=== PATIENT | female | born 1950 | race Caucasian/White ===

== ENCOUNTER 2017-10-06 19:19 | Inpatient (IN) | payer MEDICARE, MEDICAID ==
[~2017-10-06] VITALS: Ht 167.6 cm; Wt 57.2 kg
[2017-10-06] MEDS ORDERED: MAG HYDROX/AL HYDROX/SIMETH 30 ML UDC PO PRN ×2 (20:30→23:30)
[2017-10-06] MEDS ORDERED: LORAZEPAM 0.5 MG TABLET PO PRN (20:30)
[2017-10-06] MEDS ORDERED: ZOLPIDEM TARTRATE 5 MG TABLET PO PRN (20:30)
[2017-10-06] MEDS ORDERED: MAGNESIUM HYDROXIDE 30 ML UDC PO PRN ×2 (20:30→23:30)
[2017-10-06] MEDS ORDERED: HYDR12.5 PO (21:08)
[2017-10-06] MEDS ORDERED: LEVO137T24 PO (21:08)
[2017-10-06] MEDS ORDERED: AMLO5TAB2 PO (21:08)
[2017-10-06] MEDS ORDERED: ATOR40TA PO (21:08)
[2017-10-06] MEDS ORDERED: ASPI-605 PO (21:08)
[2017-10-06] MEDS ORDERED: METO25TA6 PO (21:08)
[2017-10-06] MEDS ORDERED: MULT1TAB73 PO (21:09)
[2017-10-06] MEDS ORDERED: ACETAMINOPHEN 325 MG TABLET PO PRN (23:30)
--- NOTE | 2017-10-07 03:16 | NUR ---
ADMITTED THIS 67 YEARS FEMALE FROM [facility], PATIENT GOT ADMITTED FOR GRAVELY DISABLE PATIENT ADMITTED VOLUNTARY DUE TO HOLD IS IS AWARE, LINDA ANY PAIN OR DISCOMFORT AT THIS TIME, NO RESPIRATORY DISTRESS NOTED, GET AGITATED EASILY SKIN ASSESSMENT IS DONE SKIN IS CLEAR, NO CONTACT NUMBER TRY TO CONTACT THE NUMBER IN FACE SHEET, BUT ITS A PRAYER LINE NUMBER CHARGE NURSE AWARE. PATIENT IS ASLEEP RIGHT NOW DENIES ANY PAIN OR DISCOMFORT AT THIS TIME, WILL CONTINUES TO MONITOR THE PATIENT EVERY 15 MIS FOR SAFETY AND FALL.
[2017-10-07 07:54] LABS: BASOPHILS % (AUTO) 0.4 % (0.0-2.0); EOSINOPHILS % (AUTO) 1.3 % (0.0-6.0); HEMATOCRIT 38 % (39-51); HEMOGLOBIN 12.5 g/dL (13.5-17.5); LYMPHOCYTES # (AUTO) 1.3 /CMM (0.8-4.8); LYMPHOCYTES % (AUTO) 15.5 % (20.0-44.0); MEAN CORPUSCULAR HEMOGLOBIN 34 PG (26.0-33.0); MEAN CORPUSCULAR HGB CONC 33 g/dl (31.0-36.0); MEAN CORPUSCULAR VOLUME 102 fL (80-96); MONOCYTES # (AUTO) 0.6 /CMM (0.1-1.30); MONOCYTES % (AUTO) 7.1 % (2.0-12.0); NEUTROPHILS # (AUTO) 6.6 /CMM (1.8-8.9); NEUTROPHILS % (AUTO) 75.7 % (43.0-81.0); PLATELET COUNT (AUTO) 216 /CMM (150-450); RDW COEFFICIENT OF VARIATION 14.1 (11.5-15.0); RED BLOOD CELL COUNT(AUTO) 3.73 MIL/uL (4.5-6.0); WHITE BLOOD COUNT (AUTO) 8.7 K/uL (4.3-11.0)
[2017-10-07 08:00] VITALS: BP 152/75
[2017-10-07 08:22] LABS: ALBUMIN 2.4 g/dL (3.4-5.0); BILIRUBIN,TOTAL 0.3 mg/dL (0.2-1.0); CALCIUM, SERUM 8.6 mg/dL (8.5-10.1); CREATININE 0.8 mg/dL (0.6-1.3); POTASSIUM 4.3 mmol/L (3.5-5.1); TOTAL PROTEIN, SERUM 5.8 g/dL (6.4-8.2)
[2017-10-07 08:26] LABS: CHOLESTEROL 140 mg/dL (<200); HDL CHOLESTEROL 42 mg/dL (40-60); LDL 79 mg/dL (0-99); TRIGLYCERIDES 100 mg/dL (30-150)
[2017-10-07] MEDS: ACETAMINOPHEN 325 MG TABLET PO PRN ×2 (11:05→19:57)
--- NOTE | 2017-10-07 11:12 | NUR ---
GPS/RN-NOTES PATIENT C/O LOWER BACK PAIN AND REQUESTING FOR TYLENOL,TYLENOL 650MG P.O GIVEN PRN ORDER.WILL CONT. MONITORING FOR SAFETY AND BEHAVIOR.
[2017-10-07] MEDS ORDERED: hydrALAZINE HCL 25 MG TABLET PO PRN (12:30)
[2017-10-07 13:01] LABS: BASOPHILS % (AUTO) 0.5 % (0.0-2.0); HEMATOCRIT 42 % (39-51); HEMOGLOBIN 13.7 g/dL (13.5-17.5); LYMPHOCYTES # (AUTO) 1.8 /CMM (0.8-4.8); LYMPHOCYTES % (AUTO) 20.9 % (20.0-44.0); MEAN CORPUSCULAR HEMOGLOBIN 33 PG (26.0-33.0); MEAN CORPUSCULAR HGB CONC 33 g/dl (31.0-36.0); MEAN CORPUSCULAR VOLUME 101 fL (80-96); MONOCYTES # (AUTO) 0.6 /CMM (0.1-1.30); MONOCYTES % (AUTO) 6.9 % (2.0-12.0); NEUTROPHILS % (AUTO) 70.7 % (43.0-81.0); PLATELET COUNT (AUTO) 254 /CMM (150-450); RED BLOOD CELL COUNT(AUTO) 4.13 MIL/uL (4.5-6.0); WHITE BLOOD COUNT (AUTO) 8.4 K/uL (4.3-11.0)
[2017-10-07 13:11] LABS: CALCIUM, SERUM 9.3 mg/dL (8.5-10.1); CREATININE 0.8 mg/dL (0.6-1.3); MAGNESIUM 1.5 mg/dL (1.8-2.4); POTASSIUM 4.2 mmol/L (3.5-5.1)
[2017-10-07 13:18] LABS: CHOLESTEROL 167 mg/dL (<200); HDL CHOLESTEROL 49 mg/dL (40-60); LDL 94 mg/dL (0-99); TRIGLYCERIDES 106 mg/dL (30-150)
[2017-10-07 13:25] LABS: THYROID STIMULATING HORMONE 14.585 uIU/mL (0.358-3.74)
[2017-10-07 16:00] VITALS: BP 115/60
--- NOTE | 2017-10-07 16:46 | NUR ---
GPS/RN-NOTES URINE SPECIMEN WAS COLLECTED AND SEND TO LAB.
[2017-10-07] MEDS: METOPROLOL TARTRATE 25 MG TABLET PO SCH (17:07)
[2017-10-07 17:08] LABS: APPEARANCE,URINE SL CLOUDY (CLEAR); BILIRUBIN,URINE NEGATIVE (NEGATIVE); BLOOD, URINE NEGATIVE Ery/uL (NEGATIVE); COLOR,URINE YELLOW (YELLOW); KETONES,URINE NEGATIVE (NEGATIVE); LEUKOCYTE ESTERASE ,URINE NEGATIVE (NEGATIVE); NITRITE, URINE NEGATIVE (NEGATIVE); PH,URINE 6.5 (5.0-8.0); PROTEIN,URINE NEGATIVE (NEGATIVE); UGLUCOSE NEGATIVE (NEGATIVE)
[2017-10-07 17:23] LABS: BACTERIA,URINE Few /HPF (None Seen); RBC,URINE 0-2 /HPF (0-2); SQUAMOUS EPITHELIAL CELL,UR Few /HPF (None Seen); WBC,URINE 0-2 /HPF (0-3)
--- NOTE | 2017-10-07 19:05 | NUR ---
GPS RN OPENING NOTE Patient was seen lying in bed with no signs of acute distress, breathing on RA with no SOB. Patient is AAOx2, appearance is disheveled; patient also seems to be worried and anxious. Patient asked to go to the bathroom and was able to ambulate slowly with a walker and 1-assist. Will continue to monitor.
--- NOTE | 2017-10-07 19:57 | NUR ---
GPS RN NOTE - Tylenol Patient requested pain medication for "moderate-severe" low back pain; patient states that she has arthritis in her back and chronic pain. 650mg PO Tylenol was given as ordered.
[2017-10-07 20:00] VITALS: BP 133/58
[2017-10-07] MEDS: ATORVASTATIN 40 MG TABLET PO SCH (21:36)
[2017-10-07] MEDS: QUETIAPINE FUMARATE 25 MG TABLET PO SCH (21:37)
--- NOTE | 2017-10-07 21:37 | NUR ---
GPS RN NOTE - Pt refused meds Patient had Lipitor and Seroquel scheduled this PM. Patient refused to take both medications. Education was provided to the patient regarding their use and why the doctor prescribed them. Patient still refused.
[2017-10-08] MEDS: ACETAMINOPHEN 325 MG TABLET PO PRN (06:18)
--- NOTE | 2017-10-08 06:21 | NUR ---
GPS RN NOTE - Tylenol Patient requested pain medication for "moderate" back pain. 650mg PO Tylenol given per prn orders.
[2017-10-08] MEDS: LEVOTHYROXINE SODIUM 137 MCG TABLET PO SCH ×2 (06:38→08:42)
[2017-10-08 08:00] VITALS: BP 123/69
[2017-10-08] MEDS: MULTIVITAMINS,THERAGRAN 1 UDTAB TABLET PO SCH (08:42)
[2017-10-08] MEDS: ESCITALOPRAM OXALATE (10 MG) 10 MG TABLET PO SCH (08:43)
[2017-10-08] MEDS: METOPROLOL TARTRATE 25 MG TABLET PO SCH ×2 (08:43→17:02)
[2017-10-08] MEDS: ASPIRIN EC 81 MG TABLET.DR PO SCH (08:43)
[2017-10-08] MEDS: HYDROCHLOROTHIAZIDE 25 MG TABLET PO SCH (08:44)
[2017-10-08] MEDS: AMLODIPINE BESYLATE 5 MG TABLET PO SCH (08:57)
--- NOTE | 2017-10-08 13:56 | NUR ---
GPS/RN-NOTES SEEN BY DR. HILL ,AWARE OF PATIENT LAB'S RESULTS WITH NNO AT THIS TIME.
[2017-10-08 16:14] VITALS: BP 121/63
--- NOTE | 2017-10-08 19:30 | NUR ---
RN NOTES RECEIVED PATIENT IN BED AWAKE, AO X 2, ABLE TO MAKE NEEDS KNOWN. . NO ACUTE DISTRESS NOTED. DENIES ANY PAIN AT THIS TIME. DENIERS SI/HI AT THIT TIME. SAFETY REMINDERS GIVEN. SITTER AT BEDSIDE. ON LOW BED WITH BILATERAL UPPER SIDE RAILS UP. CALL ROSE WITHIN EASY REACH. WILL CONTINUE TO MONITOR.
[2017-10-08 20:00] VITALS: BP 149/60
[2017-10-08 20:09] VITALS: BP 149/60
[2017-10-08] MEDS: ATORVASTATIN 40 MG TABLET PO SCH (21:32)
[2017-10-08] MEDS: QUETIAPINE FUMARATE 25 MG TABLET PO SCH (21:32)
--- NOTE | 2017-10-09 06:31 | NUR ---
RN NOTES PATIENT ASLEEP, EASILY AROUSABLE. RESPIRATIONS EVEN. NO SIGNS OF PAIN NOTED. DUE MEDS GIVEN WITH NO ASE NOTED. NEEDS ATTENDED. KEPT CLEAN, DRY, AND COMFORTABLE. SAFETY PRECAUTIONS AND COMFORT MEASURES IN PLACE. WILL GIVE REPORT TO DAY SHIFT FOR CONTINUITY OF CARE.
[2017-10-09 08:00] VITALS: BP 134/60
[2017-10-09] MEDS: ESCITALOPRAM OXALATE (10 MG) 10 MG TABLET PO SCH (08:17)
[2017-10-09] MEDS: ASPIRIN EC 81 MG TABLET.DR PO SCH (08:17)
[2017-10-09] MEDS: METOPROLOL TARTRATE 25 MG TABLET PO SCH ×2 (08:17→17:00)
[2017-10-09] MEDS: AMLODIPINE BESYLATE 5 MG TABLET PO SCH (08:18)
[2017-10-09] MEDS: MULTIVITAMINS,THERAGRAN 1 UDTAB TABLET PO SCH (08:18)
[2017-10-09] MEDS: HYDROCHLOROTHIAZIDE 25 MG TABLET PO SCH (08:19)
[2017-10-09] MEDS: LEVOTHYROXINE SODIUM 137 MCG TABLET PO SCH (08:38)
[2017-10-09] MEDS: ACETAMINOPHEN 325 MG TABLET PO PRN ×3 (08:38→19:28)
--- NOTE | 2017-10-09 14:26 | NUR ---
Initial Discharge Plan: Pt currently resides at her home alone located at [address] [place] [address]; ([phone]). Per pt, she would like to return there but NILE [phone] are unsure if that is the best plan for her. NILE will work with the MD and the pt regarding appropriate discharge planning. SW will form a safe and proper discharge.
--- NOTE | 2017-10-09 14:27 | NUR ---
NILE spoke to the pt's current shelter case manager from [facility] ([phone]), and discussed how the pt is doing and what caused her to be admitted. The shelter case manager stated that she does not think that the pt should return home and stated that a facility would be a better option if the psychiatrist agrees.
--- NOTE | 2017-10-09 16:00 | NUR ---
GPS/RN PATIENT MAGNESIUM LEVEL 1.5, DR HILL AWARE, NO NEW ORDERS AT THIS TIME.
[2017-10-09 16:15] VITALS: BP 135/58
[2017-10-09 20:11] VITALS: BP 126/95
[2017-10-09] MEDS: ATORVASTATIN 40 MG TABLET PO SCH (21:01)
[2017-10-09] MEDS: QUETIAPINE FUMARATE 25 MG TABLET PO SCH (21:02)
--- NOTE | 2017-10-09 21:03 | NUR ---
GPS-RN PATIENT REFUSED SEROQUEL 25MG PO SCHEDULED. OFFERED X3, EXPLAINED RISKS AND BENEFITS. PATIENT STILL REFUSED.
[2017-10-10 08:20] VITALS: BP 136/58
[2017-10-10] MEDS: MULTIVITAMINS,THERAGRAN 1 UDTAB TABLET PO SCH (08:43)
[2017-10-10] MEDS: ASPIRIN EC 81 MG TABLET.DR PO SCH (08:43)
[2017-10-10] MEDS: HYDROCHLOROTHIAZIDE 25 MG TABLET PO SCH (08:44)
[2017-10-10] MEDS: AMLODIPINE BESYLATE 5 MG TABLET PO SCH (08:44)
[2017-10-10] MEDS: ESCITALOPRAM OXALATE (10 MG) 10 MG TABLET PO SCH (08:44)
[2017-10-10] MEDS: METOPROLOL TARTRATE 25 MG TABLET PO SCH ×2 (08:45→16:25)
[2017-10-10] MEDS: LEVOTHYROXINE SODIUM 137 MCG TABLET PO SCH (08:45)
--- NOTE | 2017-10-10 11:31 | NUR ---
SW faxed a referral for the pt to [facility] at the fax number: [phone] (attn: Tessa). SW will now wait for a response to see if the pt was accepted or not and then go from there with discharge planning.
[2017-10-10 16:17] VITALS: BP 150/58
[2017-10-10 20:19] VITALS: BP 108/49
[2017-10-10] MEDS: ATORVASTATIN 40 MG TABLET PO SCH (22:19)
[2017-10-11 08:00] VITALS: BP 116/53
[2017-10-11] MEDS: ACETAMINOPHEN 325 MG TABLET PO PRN ×2 (08:31→18:11)
[2017-10-11] MEDS: HYDROCHLOROTHIAZIDE 25 MG TABLET PO SCH (09:00)
[2017-10-11] MEDS: AMLODIPINE BESYLATE 5 MG TABLET PO SCH (09:00)
[2017-10-11] MEDS: METOPROLOL TARTRATE 25 MG TABLET PO SCH ×2 (09:00→18:07)
[2017-10-11] MEDS: MULTIVITAMINS,THERAGRAN 1 UDTAB TABLET PO SCH (10:22)
[2017-10-11] MEDS: ESCITALOPRAM OXALATE (10 MG) 10 MG TABLET PO SCH (10:22)
[2017-10-11] MEDS: LEVOTHYROXINE SODIUM 137 MCG TABLET PO SCH (10:22)
[2017-10-11] MEDS: ASPIRIN EC 81 MG TABLET.DR PO SCH (10:23)
[2017-10-11 16:00] VITALS: BP 144/59
--- NOTE | 2017-10-11 18:00 | NUR ---
MED COMPLIANT,MED. X2 WITH TYLENOL 650 MG PO FOR HEADACHE.
--- NOTE | 2017-10-11 19:30 | NUR ---
GPS RN NOTE, RECEIVED PATIENT AWAKE AND IN BED, NO S/S OR COMPLAINTS OF PAIN AT THIS TIME. PATIENT IS DISPLAYING NO S/S OF APPARENT DISTRESS AT THIS TIME. PATIENT BREATHING IS UNLABORED WITH EQUAL RISE AND FALL CHEST. PATIENT IS ALERT AND ORIENTED X 1 ON ROOM AIR WITH A SPO2 95% . PATIENT IS DEPRESSED, PARANOID, CONFUSED, DISORGANIZED, COOPERATIVE, ANXIOUS AT TIMES, AND NEEDS REDIRECTION. PATIENT DENIES SUICIDE IDEATIONS AND HOMICIDAL IDEATIONS AT THIS TIME. PATIENT EDUCATED ON THE USE OF THE CALL ROSE. PATIENT BED SIDE RAILS UP X 2 FOR SAFETY, BED IS LOCKED, LOW, AND I WILL CONTINUE TO MONITOR AND MAINTAIN SAFETY WITH THE HELP OF STAFF.
[2017-10-11 20:26] VITALS: BP 144/63
[2017-10-11] MEDS: ATORVASTATIN 40 MG TABLET PO SCH (21:38)
[2017-10-12] MEDS: ACETAMINOPHEN 325 MG TABLET PO PRN ×2 (02:00→02:01)
--- NOTE | 2017-10-12 02:00 | NUR ---
GPS RN NOTE, PATIENT HAS A COMPLAINT OF LOWER BACK PAIN AT 2 OUT 10 ON THE PAIN SCALE AND IS REQUESTING TYLENOL AT THIS TIME. PATIENT VITAL SIGNS ARE STABLE. GAVE TYLENOL 650MG PO Q6HR PRN ORDERED. WILL REASSESS FOR PAIN AND I WILL CONTINUE TO MONITOR THIS PATIENT.
[2017-10-12 08:00] VITALS: BP 130/61
[2017-10-12] MEDS: LEVOTHYROXINE SODIUM 137 MCG TABLET PO SCH (08:19)
[2017-10-12] MEDS: ASPIRIN EC 81 MG TABLET.DR PO SCH (08:20)
[2017-10-12] MEDS: MULTIVITAMINS,THERAGRAN 1 UDTAB TABLET PO SCH (08:20)
[2017-10-12] MEDS: ESCITALOPRAM OXALATE (10 MG) 10 MG TABLET PO SCH (08:20)
[2017-10-12] MEDS: HYDROCHLOROTHIAZIDE 25 MG TABLET PO SCH (08:22)
[2017-10-12] MEDS: AMLODIPINE BESYLATE 5 MG TABLET PO SCH (08:23)
[2017-10-12] MEDS: METOPROLOL TARTRATE 25 MG TABLET PO SCH ×2 (08:23→16:22)
[2017-10-12 16:00] VITALS: BP 157/67
[2017-10-12 20:00] VITALS: BP 154/60
[2017-10-12] MEDS: ATORVASTATIN 40 MG TABLET PO SCH (21:13)
--- NOTE | 2017-10-13 04:10 | NUR ---
RN INITIAL NOTES: RECEIVED REPORT FROM BERT JOHNSTON, PT WILL BE GPS OVERFLOW-VOLUNTARY ADMISSION. PT IS TALKING TO HERSELF, A/O X1-2, HAS FLAT AFFECT, ISOLATIVE. PT NOTED TO HAVE UNSTEADY GAIT, NEUROLOGY MANAGER AT BED SIDE FOR ASSISTANCE. NO IV ACCESS PER GPS POLICY, NO SCD PER GPS POLICY AND SAFETY. DENIES ANY PAIN AT THIS TIME, VERBALIZED THAT SHE'S HUNGRY. OFFERED SAND WHICH AND JELL-O, PT CONSUMED SNACK/MEAL 100%. SAFETY PRECAUTIONS FOR FALL INITIATED, WILL CONTINUE MONITORING PT FOR SAFETY [id number] AND FOR ANY CHANGES IN BEHAVIOR
--- NOTE | 2017-10-13 04:30 | NUR ---
RN NOTES PT. WAS MOVED TO ANOTHER UNIT MS-2 (GPS OVERFLOW) . PT. AGREED TO BE MOVED, DENIES PAIN, NO SOB,
[2017-10-13 04:58] VITALS: BP 144/61
--- NOTE | 2017-10-13 06:30 | NUR ---
RN NOTES: TOTAL OF 5HRS OF SLEEP
--- NOTE | 2017-10-13 06:54 | NUR ---
RN CLOSING NOTES: PT IN BED, AWAKE, REMAINS A/O X1-2, RESPIRATION EVEN AND UNLABORED, NO IV ACCESS PER GPS POLICY. APPEARS CALM AND COMFORTABLE. NO SHARP OBJECTS NOTED AT BED SIDE. VS REMAINS STABLE, NEEDS ATTENDED. SAFETY PRECAUTIONS FOR FALL REMAINS ENGAGED, WILL ENDORSE TO DAY RN FOR YONY.
--- NOTE | 2017-10-13 07:26 | NUR ---
MS OPENING NOTES RECEIVED PATIENT IN STABLE CONDITION. IN NO APPARENT DISTRESS. BEDSIDE RAILS ARE UPX2. BED IS LOCKED AND LOWERED. CALL LIGHT IS WITHIN REACH. WILL CONTINUE TO MONITOR.
[2017-10-13 08:00] VITALS: BP 138/61
[2017-10-13] MEDS: HYDROCHLOROTHIAZIDE 25 MG TABLET PO SCH (08:06)
[2017-10-13] MEDS: ESCITALOPRAM OXALATE (10 MG) 10 MG TABLET PO SCH (08:06)
[2017-10-13] MEDS: LEVOTHYROXINE SODIUM 137 MCG TABLET PO SCH (08:06)
[2017-10-13] MEDS: METOPROLOL TARTRATE 25 MG TABLET PO SCH (08:06)
[2017-10-13 08:07] VITALS: BP 138/61
[2017-10-13] MEDS: MULTIVITAMINS,THERAGRAN 1 UDTAB TABLET PO SCH (08:07)
[2017-10-13] MEDS: AMLODIPINE BESYLATE 5 MG TABLET PO SCH (08:07)
[2017-10-13] MEDS: ASPIRIN EC 81 MG TABLET.DR PO SCH (08:07)
--- NOTE | 2017-10-13 12:18 | NUR ---
DR. ARNETT GAVE AN ORDER TO D/C HOLD AND D/C TO [facility] AND TO FOLLOW UP WITH PSYCH AND MEDICAL DOCTORS.
--- NOTE | 2017-10-13 14:47 | NUR ---
Due to an MSP case that the pt still has open, [facility] denied the pt.
--- NOTE | 2017-10-13 14:47 | NUR ---
Pt got accepted to [facility] located at [address] [place], [place] [id number].
--- NOTE | 2017-10-13 14:48 | NUR ---
Discharge Note: Pt was discharged to [facility] ([facility]) [address] [place] [id number]; . Pt was transported via [facility] (Trip #[id number]) at 2pm. Pt does not have anyone to contact about this discharge plan. Upon discharge, the pt appeared to be in a euthymic mood with an anxious affect but she was cooperative. Pt denied suicidal and homicidal ideation as well as visual and auditory hallucinations. Pt will be under the care of psychiatrist, Dr. Hagan, located at [address], [place] [address]; and senior strategy analyst, Dr. Alvarado, located at [address] [place] [address]; .
--- NOTE | 2017-10-13 14:50 | NUR ---
MS RN GPS CLOSING NOTES DISCHARGED PATIENT IN STABLE CONDITION. PATIENT HAD NO IV LINE. ID BAND WAS REMOVED. ALL NEEDS WERE MET. EXITCARE WAS PROVIDED TO THE PATIENT. PATIENT ESCORTED OUT OF THE HOSPITAL VIA AMBULANCE. BELONGINGS WERE SENT WITH PATIENT.
== END 2017-10-13 14:55 | DRG 881 ==
LOC: GPS 19:19 → EDSEX 19:19 → GPS 10-10 20:00 → GPSOV2 10-13 04:22
PROVIDERS: ADMIT Psychiatry & Neurology Psychiatry; ATTEND Nurse Practitioner Acute Care
DX: F32.9 Major depressive disorder, single episode, unspecified (principal); F29 Unspecified psychosis not due to a substance or known physiological condition; Z73.6 Limitation of activities due to disability; E03.9 Hypothyroidism, unspecified; E78.5 Hyperlipidemia, unspecified; E83.42 Hypomagnesemia; F03.90 Unspecified dementia, unspecified severity, without behavioral disturbance, psychotic disturbance, mood disturbance, and anxiety; I10 Essential (primary) hypertension; I25.10 Atherosclerotic heart disease of native coronary artery without angina pectoris; K21.9 Gastro-esophageal reflux disease without esophagitis; Z79.899 Other long term (current) drug therapy
CPT/HCPCS: 36415; 80048-TC; 80053-TC; 80061-TC; 81000-TC; 82746; 83540-TC; 83735-TC; 84443-TC; 85025-TC; 87081-TC; 97116-TC; 97530-TC; Z7610

== ENCOUNTER 2017-12-22 08:38 | Inpatient (IN) | payer MEDICARE, MEDICAID ==
[~2017-12-22] VITALS: Ht 162.6 cm; Wt 65.3 kg
[~2017-12-22 08:38] MED LIST: AMLO5TAB7 PO; ASPI-605 PO; ATOR40TA PO; HYDR12.5 PO; LEVO137T24 PO; METO25TA6 PO; MULT1TAB73 PO
--- NOTE | 2017-12-22 08:48 | NUR ---
ASH 67 YEAR OLD FEMALE FROM [facility] C/O OF SOB. PATIENT IS ALERT AND ORIENTED X1-2 WITH EPISODES OF FORGETFULNESS. BREATHING EVEN AND LABORED WITH SLIGHT DISTRESS NOTED. O2 PLACED ON PATIENT 2L VIA NC. SKIN WARM TOUCH. AWAITNG TO BE SEEN BY
[2017-12-22] MEDS ORDERED: IPRATROPIUM NEB FS 0.5 MG/2.5 ML AMPUL.NEB ONE (08:51)
[2017-12-22] MEDS ORDERED: ALBUTEROL FS 2.5 MG/3 ML VIAL.NEB ONE (08:51)
--- NOTE | 2017-12-22 08:52 | NUR ---
RT AT BEDSIDE, BREATHING TX DONE PER MD ORDER
[2017-12-22] MEDS ORDERED: ALBUTEROL FS 2.5 MG/3 ML VIAL.NEB NEB ONE (09:00)
[2017-12-22] MEDS ORDERED: IV NS 0.9% 1,000 ML BAG IV ONE ×2 (09:00→10:00)
[2017-12-22] MEDS ORDERED: methylPREDNISolone SOD SUCC 125 MG/2ML VIAL IV ONE (09:00)
[2017-12-22] MEDS ORDERED: IPRATROPIUM NEB FS 0.5 MG/2.5 ML AMPUL.NEB NEB ONE (09:00)
[2017-12-22] MEDS ORDERED: methylPREDNISolone SOD SUCC 125 MG/2ML VIAL ONE (09:03)
[2017-12-22 09:17] LABS: EOSINOPHILS % (AUTO) 0.2 % (0.0-6.0); HEMATOCRIT 35 % (33-45); HEMOGLOBIN 11.6 g/dL (11.5-14.8); LYMPHOCYTES # (AUTO) 1.2 /CMM (0.8-4.8); LYMPHOCYTES % (AUTO) 4.8 % (20.0-44.0); MEAN CORPUSCULAR HGB CONC 33 g/dl (31.0-36.0); MEAN CORPUSCULAR VOLUME 100 fL (82-100); MONOCYTES # (AUTO) 0.9 /CMM (0.1-1.30); MONOCYTES % (AUTO) 3.5 % (2.0-12.0); NEUTROPHILS # (AUTO) 22.3 /CMM (1.8-8.9); NEUTROPHILS % (AUTO) 91.5 % (43.0-81.0); PLATELET COUNT (AUTO) 381 /CMM (150-450); WHITE BLOOD COUNT (AUTO) 24.4 K/uL (4.3-11.0)
[2017-12-22] MEDS ORDERED: ASPI-1152 PO (09:25)
[2017-12-22] MEDS ORDERED: HYDR-4076 PO (09:25)
[2017-12-22] MEDS ORDERED: MAG30ORA PO (09:25)
[2017-12-22] MEDS ORDERED: MULT-213 PO (09:25)
[2017-12-22] MEDS ORDERED: NA P133E RC (09:25)
[2017-12-22] MEDS ORDERED: ACET-868 PO (09:25)
[2017-12-22] MEDS ORDERED: ESCI10TA PO (09:25)
[2017-12-22] MEDS ORDERED: MAGN400O6 PO (09:25)
[2017-12-22 09:29] LABS: CALCIUM, SERUM 9.2 mg/dL (8.5-10.1); CARBON DIOXIDE 28 mmol/L (21-32); CHLORIDE 98 mmol/L (98-107); CREATININE 0.8 mg/dL (0.6-1.3); GLUCOSE 177 mg/dL (74-106); POTASSIUM 5.1 mmol/L (3.5-5.1); SODIUM SERUM 134 mmol/L (136-145); UREA NITROGEN, BLOOD 11 mg/dL (7-18)
[2017-12-22 09:40] LABS: TROPONIN I < 0.017 ng/mL (0.00-0.056)
[2017-12-22 09:41] LABS: APPEARANCE,URINE CLEAR (CLEAR); BILIRUBIN,URINE NEGATIVE (NEGATIVE); BLOOD, URINE NEGATIVE Ery/uL (NEGATIVE); COLOR,URINE YELLOW (YELLOW); KETONES,URINE NEGATIVE (NEGATIVE); LEUKOCYTE ESTERASE ,URINE NEGATIVE (NEGATIVE); NITRITE, URINE NEGATIVE (NEGATIVE); PH,URINE 6.5 (5.0-8.0); PROTEIN,URINE 1+ mg/dl (NEGATIVE); UGLUCOSE NEGATIVE (NEGATIVE)
[2017-12-22] MEDS ORDERED: VANCOMYCIN 1 GM in IV D5W 250 ML IV ONE (10:00)
[2017-12-22] MEDS ORDERED: PIPERACILLIN /TAZOBACTAM 3.375 G in IV D5W 50 ML IV ONE (10:00)
[2017-12-22 10:07] LABS: BACTERIA,URINE Few /HPF (None Seen); RBC,URINE 0-2 /HPF (0-2); SQUAMOUS EPITHELIAL CELL,UR FEW /HPF (None Seen); WBC,URINE 0-2 /HPF (0-3)
[2017-12-22 10:10] LABS: INR 1.1 (0.85-1.15)
--- NOTE | 2017-12-22 10:32 | NUR ---
REPORT GIVEN TO FRANKO VELAZCO ADM.
[2017-12-22 11:10] VITALS: BP 138/46
--- NOTE | 2017-12-22 11:10 | NUR ---
TELE/RN INITIAL NOTES RECEIVED PT FROM ER, A/O X1, APPEARS CONFUSED. NO C/O PAIN AT THIS TIME. ON 4L O2 VIA NC, TOLERATING WELL. RFA G20 INTACT AND PATENT. VS TAKEN AND PERTINENT ASSESSMENT DONE. PLACED ON TELEMONITOR. ORIENTED TO ROOM AND USE OF CALL LIGHT. SAFETY MEASURES IN PLACED. CALL LIGHT WITHIN REACH. WILL CONT TO MONITOR NOTIFIED ENEDELIA PEREIRA NP FOR ADMISSION ORDERS. AWAITING FOR ORDERS
--- NOTE | 2017-12-22 13:00 | NUR ---
RN NOTES FOLLOW UP WITH SONIA PEREIRA FOR ADMISSION ORDERS, PER ELECTROPLATING WORKER, WILL GO DOWN AND CHECK PT
--- NOTE | 2017-12-22 15:23 | NUR ---
RN NOTES RECEIVED DIET ORDER FROM RAUL QUISPE
[2017-12-22 16:00] VITALS: BP 142/46
[2017-12-22] MEDS ORDERED: NA PHOS,M-B/NA PHOS,DI-BA 1 EA ENEMA RC PRN (16:30)
[2017-12-22] MEDS ORDERED: MAGNESIUM HYDROXIDE 30 ML UDC PO PRN (16:30)
[2017-12-22] MEDS ORDERED: ACETAMINOPHEN 325 MG TABLET PO PRN ×2 (16:30→17:00)
[2017-12-22] MEDS ORDERED: hydrALAZINE HCL 25 MG TABLET PO PRN (16:30)
[2017-12-22] MEDS ORDERED: MAG HYDROX/AL HYDROX/SIMETH 30 ML UDC PO PRN (16:30)
[2017-12-22] MEDS ORDERED: ONDANSETRON HCL/PF 4 MG/2 ML VIAL IVP PRN (17:00)
[2017-12-22] MEDS ORDERED: Z GUARD REMEDY 2 OZ OINT TP PRN (17:00)
--- NOTE | 2017-12-22 17:15 | NUR ---
RN NOTES CLARIFIED WITH STONE SETTER METAL OPTICAL FRAMES RANDALL RE: DIET ORDER,PER STONE SETTER METAL OPTICAL FRAMES CHANGE TO SOFT DIET THEN ADVANCE PER ST
[2017-12-22] MEDS: ENOXAPARIN SODIUM 40 MG/0.4 ML DISP.SYRIN SQ SCH (17:16)
[2017-12-22] MEDS: METOPROLOL TARTRATE 25 MG TABLET PO SCH (17:16)
[2017-12-22] MEDS ORDERED: FEE PK DOSING 1 MIN EA MC ONE (17:16)
[2017-12-22] MEDS: IV NS 0.9% 1,000 ML IV PRN (17:18)
[2017-12-22] MEDS: PIPERACILLIN /TAZOBACTAM 3.375 G in IV D5W 50 ML IV SCH ×2 (18:30→23:36)
--- NOTE | 2017-12-22 19:30 | NUR ---
RN NOTES PT IN STABLE CONDITION. NO ACUTE CHANGES THROUGHOUT SHIFT. SAFETY MEASURES AND ASPIRATION PRECAUTION OBSERVED AT ALL TIMES. ALL NEEDS ANTICIPATED. ENDORSED TO PM SHIFT RN FOR YONY
[2017-12-22 20:00] VITALS: BP 120/41
--- NOTE | 2017-12-22 20:00 | NUR ---
rn telephone triage notes received pts in bed a/ox 3 with periods of confussion , pts refuses o2 ,o2 sat on r/a is 98% NO SOB NO DISTRESS NOTED , DUE MEDS GIVEN ORDERED ,ALL NEEDS ATTENDED TOO , CALL LIGHT WITHIN REACH , KEPT PTS CLEAN DRY AND COMFORTABLE, PTS IS CONFUSED MOVED TO ROOM NEAR STATION.
[2017-12-22] MEDS: ATORVASTATIN 40 MG TABLET PO SCH (21:10)
[2017-12-22] MEDS: VANCOMYCIN 1 GM in IV NS 0.9% 250 ML IV SCH (21:11)
--- NOTE | 2017-12-22 23:11 | NUR ---
Patient was previously in geropysche unit due to grave disability. She has no known family or relatives in contact. She currently resides at a [facility] [phone] and on 7days bedhold. Addendum: 12/22/17 at 2311 by ANDREI UGARTE RN Amended: Links added.
[2017-12-23] VITALS: BP 135/36
[2017-12-23 04:00] VITALS: BP 151/57
[2017-12-23] MEDS: PIPERACILLIN /TAZOBACTAM 3.375 G in IV D5W 50 ML IV SCH ×3 (05:11→17:29)
--- NOTE | 2017-12-23 06:26 | NUR ---
telephone diaphragm assembler notes pts remains in bed a/o x3 with confussion . v/s stable afebrile ,no sob no distress noted , for psyche consult - dr cast. will endorse to day shift rn for continuity of care,pts still very confused & talking to her self, will continue to monitor pts.
--- NOTE | 2017-12-23 07:10 | NUR ---
TELE/RN INITIAL NOTES RECEIVED PT IN BED, A/OX2-3, CONFUSED, TALKING TO HERSELF. REORIENTED PT. SR ON TELEMONITOR. NO C/O PAIN AT THIS TIME. ON 4L O2 VIA NC, TOLERATING WELL, NO SOB NOTED. WITH ONGOING IVF NS @ 75ML/HR INFUSING WELL ON RFA G20. BED ALARM ON, SAFETY MEASURES AND ASPIRATION PRECAUTION IN PLACED. CALL LIGHT WITHIN REACH. WILL CONT TO MONITOR
[2017-12-23 07:18] LABS: BASOPHILS % (AUTO) 0.2 % (0.0-2.0); HEMATOCRIT 31 % (33-45); HEMOGLOBIN 10.1 g/dL (11.5-14.8); LYMPHOCYTES # (AUTO) 0.9 /CMM (0.8-4.8); LYMPHOCYTES % (AUTO) 4.4 % (20.0-44.0); MEAN CORPUSCULAR HGB CONC 33 g/dl (31.0-36.0); MEAN CORPUSCULAR VOLUME 100 fL (82-100); MONOCYTES # (AUTO) 0.7 /CMM (0.1-1.30); MONOCYTES % (AUTO) 3.3 % (2.0-12.0); NEUTROPHILS # (AUTO) 18.1 /CMM (1.8-8.9); NEUTROPHILS % (AUTO) 92.1 % (43.0-81.0); PLATELET COUNT (AUTO) 378 /CMM (150-450); RED BLOOD CELL COUNT(AUTO) 3.05 MIL/uL (4.0-5.2); THYROID STIMULATING HORMONE 0.31 uIU/mL (0.358-3.74); WHITE BLOOD COUNT (AUTO) 19.6 K/uL (4.3-11.0)
[2017-12-23 07:23] LABS: ALBUMIN 2.2 g/dL (3.4-5.0); BILIRUBIN,TOTAL 0.2 mg/dL (0.2-1.0); CALCIUM, SERUM 8.9 mg/dL (8.5-10.1); CREATININE 0.8 mg/dL (0.6-1.3); MAGNESIUM 1.8 mg/dL (1.8-2.4); POTASSIUM 3.5 mmol/L (3.5-5.1); TOTAL PROTEIN, SERUM 6.8 g/dL (6.4-8.2)
[2017-12-23 08:00] VITALS: BP 155/66
--- NOTE | 2017-12-23 08:00 | NUR ---
RN NOTES PT'S O2 SAT=91%, PT REMOVED NASAL CANNULA, PLACED O2 AT 4L VIA NC, RECHECKED SPO2=94%. REORIENTED PT, WILL KEEP MONITORING
[2017-12-23] MEDS: LEVOTHYROXINE SODIUM 137 MCG TABLET PO SCH (08:18)
[2017-12-23] MEDS: ESCITALOPRAM OXALATE (10 MG) 10 MG TABLET PO SCH (08:32)
[2017-12-23] MEDS: METOPROLOL TARTRATE 25 MG TABLET PO SCH ×2 (08:34→16:55)
[2017-12-23] MEDS: AMLODIPINE BESYLATE 5 MG TABLET PO SCH (08:35)
[2017-12-23] MEDS: ASPIRIN EC 81 MG TABLET.DR PO SCH (08:38)
[2017-12-23] MEDS: VANCOMYCIN 1 GM in IV NS 0.9% 250 ML IV SCH ×2 (09:47→21:40)
[2017-12-23] MEDS: IV NS 0.9% 1,000 ML IV PRN (09:53)
--- NOTE | 2017-12-23 10:59 | NUR ---
RN NOTES NOTED PT PULLED OUT IV LINE. PRESSURE DRESSING PLACED. IV CATH INTACT. NO BLEEDING NOTED. NOTIFIED FRONT LOADER RESIDENTIAL DRIVER RANDALL RE: INCIDENT. PER FRONT LOADER RESIDENTIAL DRIVER OK TO PUT ON APRIL SOFT WRIST RESTRAINT
[2017-12-23] MEDS ORDERED: OLANZAPINE 5 MG/TAB.RAPDIS SL ONE (11:30)
[2017-12-23 12:00] VITALS: BP 158/65
[2017-12-23 16:00] VITALS: BP_SYST 152; BP_DIAS 16; BP_DIAS 76
[2017-12-23] MEDS: LACTOBACILLUS RHAMNOSUS GG 1 EACH CAP.SPRINK PO SCH (16:53)
--- NOTE | 2017-12-23 19:30 | NUR ---
RN NOTES PT IN STABLE CONDITION. NO ACUTE CHANGES NOTED THROUGHOUT SHIFT. SAFETY MEASURES AND ASPIRATION PRECAUTION OBSERVED AT ALL TIMES. ALL NEEDS ANTICIPATED. ENDORSED TO PM SHIFT RN FOR YONY BILATERAL SOFT WRIST RESTRAINT D/C. ON 1:1 SITTER
[2017-12-23 20:00] VITALS: BP 177/73
--- NOTE | 2017-12-23 20:00 | NUR ---
RN NOTES RECEIVED PATIENT IN BED, ALERT, CONFUSED, HYPERVERBAL, NO SOB, ON 4LPM VIA NC, SPO2 98%, NO COMPLAIN OF PAIN, INCONTINENT OF BOWEL AND BLADDER, REMOVING IV LINES, FALL RISK, ONE ON ONE SITTER AT THE BEDSIDE. WILL CONTINUE TO MONITOR.
[2017-12-23] MEDS: ENOXAPARIN SODIUM 40 MG/0.4 ML DISP.SYRIN SQ SCH (20:51)
[2017-12-23] MEDS: ATORVASTATIN 40 MG TABLET PO SCH (21:40)
[2017-12-24] MEDS: PIPERACILLIN /TAZOBACTAM 3.375 G in IV D5W 50 ML IV SCH ×5 (00:01→23:23)
[2017-12-24 00:34] VITALS: BP 132/55
[2017-12-24 04:00] VITALS: BP 146/65
[2017-12-24 06:38] LABS: BASOPHILS % (AUTO) 0.3 % (0.0-2.0); EOSINOPHILS % (AUTO) 0.4 % (0.0-6.0); HEMATOCRIT 30 % (33-45); HEMOGLOBIN 9.9 g/dL (11.5-14.8); LYMPHOCYTES # (AUTO) 2.2 /CMM (0.8-4.8); LYMPHOCYTES % (AUTO) 16.6 % (20.0-44.0); MEAN CORPUSCULAR HGB CONC 33 g/dl (31.0-36.0); MEAN CORPUSCULAR VOLUME 102 fL (82-100); MONOCYTES # (AUTO) 0.9 /CMM (0.1-1.30); MONOCYTES % (AUTO) 6.6 % (2.0-12.0); NEUTROPHILS # (AUTO) 10.2 /CMM (1.8-8.9); NEUTROPHILS % (AUTO) 76.1 % (43.0-81.0); PLATELET COUNT (AUTO) 367 /CMM (150-450); RED BLOOD CELL COUNT(AUTO) 2.96 MIL/uL (4.0-5.2); WHITE BLOOD COUNT (AUTO) 13.3 K/uL (4.3-11.0)
--- NOTE | 2017-12-24 06:39 | NUR ---
RN NOTES PATIENT IS ASLEEP AT THIS TIME, NOT IN APPARENT DISTRESS, PER BOYFRIEND AT THE BEDSIDE, NO COMPLAIN OF HEADACHE. PATIENT REPORTED HAVING SILENT SEIZURE X1 DURING THE NIGHT, COMPLAINED OF HEADACHE, GIVEN MOTRIN WITH GOOD RELIEF. VOIDING USING BEDSIDE COMMODE WITH ASSIST. AMBULATED IN THE HALLWAY DURING PM SHIFT. Addendum: 12/24/17 at 0656 by MARISSA KLEIN RN PLEASE IGNORE NOTES ABOVE, ERRONEOUSLY PUT NOTES FOR ANOTHER PATIENT.
--- NOTE | 2017-12-24 06:58 | NUR ---
RN NOTES PATIENT IS ALERT AND AWAKE, CONFUSED, HYPERVERBAL, ON 4LPM VIA NC, NO ADVERSE CONDITION DURING SHIFT, SLEPT FOR 5 HOURS, SITTER AT THE BEDSIDE FOR SAFETY, CONTINUE VANCO AND ZOSYN, HOLD HCTX AND AWAITING PSYCH CONSULT.
[2017-12-24 07:00] LABS: CALCIUM, SERUM 7.7 mg/dL (8.5-10.1); CREATININE 0.9 mg/dL (0.6-1.3); POTASSIUM 3.2 mmol/L (3.5-5.1)
--- NOTE | 2017-12-24 07:46 | NUR ---
RN OPENING NOTES RECEIVED PATIENT IN BED, ALERT, CONFUSED, HYPERVERBAL. NO ACUTE DISTRESS, NO SOB, ON 2LPM VIA NC, SPO2 96%. NO COMPLAIN OF PAIN OR DISCOMFORT. IV SITE INTACT AND PATENT. 1:1 SITTER ON BEDSIDE FOR SAFETY, PER NIGHT RN REPORT, PATIENT REMOVING IV LINES, FALL RISK. BED IN LOW/LOCKED POSITION, SIDERAILS UP X2, CALL LIGHT IN REACH. WILL CONTINUE TO MONITOR ACCORDINGLY.
[2017-12-24 08:00] VITALS: BP 142/63
[2017-12-24] MEDS: LACTOBACILLUS RHAMNOSUS GG 1 EACH CAP.SPRINK PO SCH ×2 (08:20→17:35)
[2017-12-24] MEDS: ASPIRIN EC 81 MG TABLET.DR PO SCH (08:20)
[2017-12-24] MEDS: LEVOTHYROXINE SODIUM 137 MCG TABLET PO SCH (08:20)
[2017-12-24] MEDS: METOPROLOL TARTRATE 25 MG TABLET PO SCH ×2 (08:21→17:37)
[2017-12-24] MEDS: ESCITALOPRAM OXALATE (10 MG) 10 MG TABLET PO SCH (08:21)
[2017-12-24] MEDS: AMLODIPINE BESYLATE 5 MG TABLET PO SCH (08:22)
[2017-12-24] MEDS: VANCOMYCIN 1 GM in IV NS 0.9% 250 ML IV SCH ×2 (10:31→21:19)
[2017-12-24] MEDS ORDERED: QUETIAPINE FUMARATE 25 MG TABLET PO SCH ×2 (12:30→17:00)
[2017-12-24] MEDS: POTASSIUM CHLORIDE 20 MEQ POWDER PACKET PO SCH ×2 (12:44→15:05)
[2017-12-24 16:00] VITALS: BP 150/97
--- NOTE | 2017-12-24 19:10 | NUR ---
RN M/S NOTE PATIENT PRESENTS AOX1-2, SPEECH CLEAR, SITTER AT BEDSIDE, NO S/SX OF CARDIAC OR RESPIRATORY DISTRESS, DENIES PAIN, SKIN KEPT DRY AND INTACT, LFA #22G SL, PATENT FLUSHING WELL, SAFETY MAINTAINED AT ALL TIMES, BED IN LOW LOCKED POSITION, WILL CONTINUE TO MONITOR FOR CHANGES.
--- NOTE | 2017-12-24 19:34 | NUR ---
RN CLOSING NOTES PATIENT IN STABLE CONDITION. SITTER AT BEDSIDE FOR SAFETY. ALL NEEDS ATTENDED AND PROVIDED. ALL DUE MEDICATIONS GIVEN ORDERED. KEPT PATIENT SAFE AND COMFORTABLE. BED IN LOW/LOCKED POSITION, SIDERAILS UPX2, CALL LIGHT IN REAVH. ENDORSED TO NIGHT RN FOR YONY.
[2017-12-24 20:00] VITALS: BP 152/61
[2017-12-24] MEDS: ATORVASTATIN 40 MG TABLET PO SCH (21:19)
[2017-12-24] MEDS: ENOXAPARIN SODIUM 40 MG/0.4 ML DISP.SYRIN SQ SCH (21:20)
[2017-12-25 04:00] VITALS: BP 150/74
[2017-12-25] MEDS: PIPERACILLIN /TAZOBACTAM 3.375 G in IV D5W 50 ML IV SCH ×3 (05:03→17:03)
[2017-12-25 07:02] LABS: BASOPHILS # (AUTO) 0.1 /CMM (0.0-0.2); BASOPHILS % (AUTO) 0.5 % (0.0-2.0); EOSINOPHILS % (AUTO) 1.4 % (0.0-6.0); HEMATOCRIT 32 % (33-45); HEMOGLOBIN 10.7 g/dL (11.5-14.8); LYMPHOCYTES # (AUTO) 1.8 /CMM (0.8-4.8); LYMPHOCYTES % (AUTO) 15.6 % (20.0-44.0); MEAN CORPUSCULAR HGB CONC 33 g/dl (31.0-36.0); MEAN CORPUSCULAR VOLUME 100 fL (82-100); MONOCYTES % (AUTO) 8.5 % (2.0-12.0); NEUTROPHILS # (AUTO) 8.5 /CMM (1.8-8.9); PLATELET COUNT (AUTO) 415 /CMM (150-450); WHITE BLOOD COUNT (AUTO) 11.5 K/uL (4.3-11.0)
[2017-12-25 07:09] LABS: CALCIUM, SERUM 8.3 mg/dL (8.5-10.1); CREATININE 0.8 mg/dL (0.6-1.3); POTASSIUM 3.3 mmol/L (3.5-5.1)
--- NOTE | 2017-12-25 07:54 | NUR ---
MS RN OPENING NOTES RECEIVED PT FROM NIGHTSHIFT NURSE IN STABLE CONDITION. PT IS A/O X1. NO SOB OR ACUTE SIGNS OF DISTRESS NOTED. BREATHING IS EVEN AND UNLABORED. PT ON 2L VIA AND SATING WELL. SHE DENIES ANY PAIN AT THIS TIME. IVS TO LEFT WRIST AND RIGHT FA NOTED TO BE PATENT AND INTACT. NO REDNESS OR SIGNS OF INFILTRATION NOTED. BED IN LOW LOCKED POSITION, SIDE RAILS UP X2, CALL LIGHT WITHIN REACH. 1:1 SITTER AT BEDSIDE. WILL CONTINUE TO MONITOR
[2017-12-25 08:00] VITALS: BP_SYST 150; BP_SYST 152; BP_DIAS 108; BP_DIAS 74
[2017-12-25] MEDS: ASPIRIN EC 81 MG TABLET.DR PO SCH (08:17)
[2017-12-25] MEDS: LACTOBACILLUS RHAMNOSUS GG 1 EACH CAP.SPRINK PO SCH ×2 (08:17→16:57)
[2017-12-25] MEDS: ESCITALOPRAM OXALATE (10 MG) 10 MG TABLET PO SCH (08:18)
[2017-12-25] MEDS: LEVOTHYROXINE SODIUM 137 MCG TABLET PO SCH (08:18)
[2017-12-25] MEDS: METOPROLOL TARTRATE 25 MG TABLET PO SCH ×2 (08:18→16:57)
[2017-12-25] MEDS: AMLODIPINE BESYLATE 5 MG TABLET PO SCH (08:19)
[2017-12-25] MEDS ORDERED: PIPE3.379 IV (10:06)
[2017-12-25] MEDS ORDERED: VANC1PLA10 IV (10:06)
[2017-12-25] MEDS ORDERED: POTASSIUM CHLORIDE 20 MEQ POWDER PACKET PO SCH (10:30)
[2017-12-25] MEDS: VANCOMYCIN 1 GM in IV NS 0.9% 250 ML IV SCH (10:34)
[2017-12-25 16:00] VITALS: BP 137/66
[2017-12-25 16:57] VITALS: BP 137/88
--- NOTE | 2017-12-25 19:10 | NUR ---
MS RN CLOSING NOTES PT REMAINS STABLE. ALL NEEDS MET DURING SHIFT AND ORDERS CARRIED OUT ACCORDINGLY. ALL DUE MEDS GIVEN. PRN CARE RENDERED. IV REMAINS PATENT AND INTACT. REPORT CALLED AND GIVEN TO CHITO THE NURSE CAFETERIA SUPERVISOR AT [facility]. PER CM, PT HAS AN AMBULANCE COKE OVEN PATCHER ARRANGED AT 1930. ENDORSE TO NIGHTSHIFT RN TO COMPETE D/C AND YONY
--- NOTE | 2017-12-25 20:15 | NUR ---
MS. FREED DISCHARGED TO [facility] VIA AMBULANCE. ALERT ORIENTATED X1 TALKING AND CONVERSING WITH THE DRIVERS. HEPLOCL LEFT IN THE LEFT WRIST FLUSHED FOR PATENCY AND CLEAR. ROOM CHECKED FOR BELONGING NONE NO DENTURES NO CLOTHES REPORT GIVEN EARLIER TO THE CARE FACILITY
== END 2017-12-25 21:00 | DRG 193 ==
LOC: ER 08:39 → TELE1 10:23 → MEDSG1 12-24 10:44
DX: J15.9 Unspecified bacterial pneumonia (principal); J96.01 Acute respiratory failure with hypoxia; G93.40 Encephalopathy, unspecified; E87.1 Hypo-osmolality and hyponatremia; F33.3 Major depressive disorder, recurrent, severe with psychotic symptoms; F41.9 Anxiety disorder, unspecified; I25.10 Atherosclerotic heart disease of native coronary artery without angina pectoris; F02.80 Dementia in other diseases classified elsewhere, unspecified severity, without behavioral disturbance, psychotic disturbance, mood disturbance, and anxiety; G30.9 Alzheimer's disease, unspecified; I10 Essential (primary) hypertension; E03.9 Hypothyroidism, unspecified; E78.5 Hyperlipidemia, unspecified; K21.9 Gastro-esophageal reflux disease without esophagitis
CPT/HCPCS: 36415; 71045-TC; 80048-TC; 80053-TC; 80061-TC; 80202-TC; 81000-TC; 83605-TC; 83735-TC; 83880; 84100-TC; 84443-TC; 84484-TC; 85025-TC; 85730-TC; 87040-TC; 87081-TC; 87086-TC; 92611-TC; 93307-TC; 97112-TC; 97116-TC; 97530-TC; A4606; G0378; J1650; J2543; J2930; J3370; J7030; J7050; J7060; Z7610

== ENCOUNTER 2018-03-16 17:44 | Inpatient (IN) | payer MEDICARE, MEDICAID ==
[~2018-03-16] VITALS: Ht 172.7 cm; Wt 64.9 kg
[~2018-03-16 17:44] MED LIST changes: +ACET-868 PO; -AMLO5TAB7 PO; +AMLO5TAB9 PO; +ASPI-1152 PO; -ASPI-605 PO; +ESCI10TA PO; +HYDR-4076 PO; +MAG30ORA PO; +MAGN400O6 PO; +MULT-213 PO; -MULT1TAB73 PO; +NA P133E RC; +PIPE3.379 IV; +VANC1PLA10 IV
--- NOTE | 2018-03-16 17:55 | NUR ---
RICHARD from [facility] by [facility] 170 for "Cough/chest congestion CXR LLL atelectasis". TO ER BED 7, HOOKED TO MONITOR, CHANGED TO GOWN, AWAITING MD SPENCER
--- NOTE | 2018-03-16 18:08 | NUR ---
VANNA SANTILLAN AT BEDSIDE
[2018-03-16 18:26] LABS: BASOPHILS % (AUTO) 0.1 % (0.0-2.0); EOSINOPHILS % (AUTO) 1.5 % (0.0-6.0); HEMATOCRIT 31 % (33-45); HEMOGLOBIN 10.4 g/dL (11.5-14.8); LYMPHOCYTES # (AUTO) 1.9 /CMM (0.8-4.8); LYMPHOCYTES % (AUTO) 14.2 % (20.0-44.0); MEAN CORPUSCULAR HGB CONC 33 g/dl (31.0-36.0); MEAN CORPUSCULAR VOLUME 97 fL (82-100); MONOCYTES % (AUTO) 7.4 % (2.0-12.0); NEUTROPHILS # (AUTO) 10.3 /CMM (1.8-8.9); NEUTROPHILS % (AUTO) 76.8 % (43.0-81.0); PLATELET COUNT (AUTO) 479 /CMM (150-450); RED BLOOD CELL COUNT(AUTO) 3.24 MIL/uL (4.0-5.2); WHITE BLOOD COUNT (AUTO) 13.4 K/uL (4.3-11.0)
--- NOTE | 2018-03-16 18:31 | NUR ---
OUT FOR CHEST XRAY
[2018-03-16 18:35] LABS: CARBON DIOXIDE 31 mmol/L (21-32); CHLORIDE 101 mmol/L (98-107); CREATININE 0.9 mg/dL (0.6-1.3); GLUCOSE 122 mg/dL (74-106); POTASSIUM 4.1 mmol/L (3.5-5.1); SODIUM SERUM 136 mmol/L (136-145); UREA NITROGEN, BLOOD 18 mg/dL (7-18)
[2018-03-16 18:40] LABS: ALANINE AMINOTRANSFERASE 19 U/L (12-78); ALBUMIN 2.2 g/dL (3.4-5.0); ALKALINE PHOSPHATASE 77 U/L (46-116); ASPARTATE AMINOTRANSFERASE 19 U/L (15-37); BILIRUBIN,TOTAL 0.2 mg/dL (0.2-1.0)
[2018-03-16] MEDS ORDERED: IV NS 0.9% 1,000 ML BAG IV STA (18:40)
[2018-03-16] MEDS ORDERED: IOHEXOL-350 100 ML VIAL IV ONE (19:17)
[2018-03-16] MEDS ORDERED: CT SWABBABLE VALVE TRANS SET 1 EA INFUS.SET MC ONE (19:18)
[2018-03-16] MEDS ORDERED: IV NS 0.9% 250 ML IV ONE (19:18)
--- NOTE | 2018-03-16 19:27 | NUR ---
URINE SPECIMEN SENT TO LAB
--- NOTE | 2018-03-16 19:29 | NUR ---
PT TRANSPORTED TO RADIOLOGY FOR CT.
[2018-03-16] MEDS ORDERED: VANCOMYCIN 1 GM in IV D5W 250 ML IV ONE (19:30)
--- NOTE | 2018-03-16 19:35 | NUR ---
REPORT GIVEN TO BRANDY JOHNSTON FOR YONY
--- NOTE | 2018-03-16 19:42 | NUR ---
PT BACK FROM RADIOLOGY. PENDING CTA RESUL.
[2018-03-16 19:56] LABS: APPEARANCE,URINE Clear (CLEAR); BILIRUBIN,URINE Negative (NEGATIVE); BLOOD, URINE Trace-lysed Ery/uL (NEGATIVE); COLOR,URINE Yellow (YELLOW); KETONES,URINE Negative (NEGATIVE); LEUKOCYTE ESTERASE ,URINE Small (NEGATIVE); NITRITE, URINE Negative (NEGATIVE); PROTEIN,URINE Negative (NEGATIVE); UGLUCOSE Negative (NEGATIVE)
[2018-03-16 20:00] VITALS: BP 138/71
[2018-03-16] MEDS: PIPERACILLIN /TAZOBACTAM 3.375 G in IV D5W 50 ML IV SCH (20:00)
--- NOTE | 2018-03-16 20:00 | NUR ---
PT RESTING IN THE BED, VSS, NAD NOTED. RESPIRATIONS EVEN AND UNLABORED. CALL LIGHT WITHIN REACH. Addendum: 03/16/18 at 2010 by SHIKHA AWAITING DISPOSITION.
[2018-03-16 20:08] LABS: BACTERIA,URINE Few /HPF (None Seen); SQUAMOUS EPITHELIAL CELL,UR Few /HPF (None Seen)
[2018-03-16] MEDS ORDERED: Z GUARD REMEDY 2 OZ OINT TP PRN (21:00)
[2018-03-16] MEDS ORDERED: ZOLPIDEM TARTRATE 5 MG TABLET PO PRN (21:00)
[2018-03-16] MEDS ORDERED: HYDROCODONE/APAP 5/325MG 1 EACH TABLET PO PRN (21:00)
[2018-03-16] MEDS ORDERED: ACETAMINOPHEN 325 MG TABLET PO PRN (21:00)
[2018-03-16] MEDS ORDERED: MAG HYDROX/AL HYDROX/SIMETH 30 ML UDC PO PRN (21:00)
[2018-03-16] MEDS ORDERED: MAGNESIUM HYDROXIDE 30 ML UDC PO PRN (21:00)
[2018-03-16] MEDS ORDERED: ONDANSETRON HCL/PF 4 MG/2 ML VIAL IVP PRN (21:00)
--- NOTE | 2018-03-16 21:18 | NUR ---
RESPORT GIVEN TO STEVEN JOHNSTON FOR YONY.
--- NOTE | 2018-03-16 21:45 | NUR ---
BROUGHT FROMER VIA GURNEY,A/A BUT CONFUSED,NO ACUTE DISTRESS NOTED OR VOICED.VSS SETTLED INTO BED
[2018-03-16] MEDS: ATORVASTATIN 40 MG TABLET PO SCH (22:39)
[2018-03-16] MEDS: ENOXAPARIN SODIUM 40 MG/0.4 ML DISP.SYRIN SQ SCH (22:41)
[2018-03-16] MEDS: IV NS 0.9% 1,000 ML IV PRN (23:00)
[2018-03-17 00:30] VITALS: BP 142/58
[2018-03-17] MEDS ORDERED: PIPERACILLIN /TAZOBACTAM 3.375 G VIAL IV ONE (03:25)
[2018-03-17 04:30] VITALS: BP 126/57
[2018-03-17] MEDS: PIPERACILLIN /TAZOBACTAM 3.375 G in IV D5W 50 ML IV SCH (05:47)
--- NOTE | 2018-03-17 07:00 | NUR ---
HAD UNEVENTFUL NIGHT, SLEPT MOST OF IT. NO ACUTE DISTRESS NOTED OR VOICED.REMAINS CONFUSED.
--- NOTE | 2018-03-17 07:30 | NUR ---
RN NOTES PATIENT AWAKE AND ALERT 1-2, WITH EPISODES OF CONFUSION, AND PATIENT NOTED TALKING TO HERSELF. BREATHING EVEN AND UNLABORED, NO COUGHING NOTED, NEEDS ATTENDED, CALL LIGHT WITHIN REACH, WILL CONTINUE TO MONITOR.
[2018-03-17 07:47] LABS: BASOPHILS # (AUTO) 0.1 /CMM (0.0-0.2); BASOPHILS % (AUTO) 0.6 % (0.0-2.0); CREATININE 0.8 mg/dL (0.6-1.3); EOSINOPHILS % (AUTO) 2.3 % (0.0-6.0); HEMATOCRIT 29 % (33-45); HEMOGLOBIN 9.9 g/dL (11.5-14.8); LYMPHOCYTES # (AUTO) 1.5 /CMM (0.8-4.8); LYMPHOCYTES % (AUTO) 15.3 % (20.0-44.0); MAGNESIUM 1.6 mg/dL (1.8-2.4); MEAN CORPUSCULAR HGB CONC 34 g/dl (31.0-36.0); MEAN CORPUSCULAR VOLUME 97 fL (82-100); MONOCYTES # (AUTO) 0.8 /CMM (0.1-1.30); MONOCYTES % (AUTO) 8.2 % (2.0-12.0); NEUTROPHILS # (AUTO) 7.1 /CMM (1.8-8.9); NEUTROPHILS % (AUTO) 73.6 % (43.0-81.0); PHOSPHORUS 3.2 mg/dL (2.5-4.9); PLATELET COUNT (AUTO) 415 /CMM (150-450); POTASSIUM 3.6 mmol/L (3.5-5.1); RED BLOOD CELL COUNT(AUTO) 3.03 MIL/uL (4.0-5.2); WHITE BLOOD COUNT (AUTO) 9.6 K/uL (4.3-11.0)
[2018-03-17 07:56] LABS: THYROID STIMULATING HORMONE 3.851 uIU/mL (0.358-3.74)
[2018-03-17 08:00] VITALS: BP 108/49
[2018-03-17 08:00] LABS: CALCIUM, SERUM 8.4 mg/dL (8.5-10.1)
[2018-03-17] MEDS: LEVOTHYROXINE SODIUM 137 MCG TABLET PO SCH (08:33)
[2018-03-17] MEDS: ESCITALOPRAM OXALATE (10 MG) 10 MG TABLET PO SCH (08:33)
[2018-03-17] MEDS: ASPIRIN EC 81 MG TABLET.DR PO SCH (08:33)
[2018-03-17] MEDS: METOPROLOL TARTRATE 25 MG TABLET PO SCH ×2 (08:35→16:16)
[2018-03-17] MEDS: AMLODIPINE BESYLATE 5 MG TABLET PO SCH (08:36)
[2018-03-17] MEDS: VANCOMYCIN 0.75 GM in IV D5W 250 ML IV SCH ×2 (08:37→21:06)
[2018-03-17] MEDS: PIPERACILLIN /TAZOBACTAM 3.375 G in IV D5W 100 ML IV SCH ×2 (10:20→17:01)
[2018-03-17] MEDS: Magnesium 1GM/D5W 100ML PREMIX 100 ML IV SCH ×2 (10:41→12:05)
[2018-03-17] MEDS ORDERED: FEE PK DOSING 1 MIN EA MC ONE (15:34)
[2018-03-17 16:00] VITALS: BP 129/62
[2018-03-17] MEDS: IV NS 0.9% 1,000 ML IV PRN (16:15)
--- NOTE | 2018-03-17 18:21 | NUR ---
RN NOTES PATIENT SEEN BY PSYCH, NO NEW ORDER AT THIS TIME. PATIENT CALM AND COOPERATIVE, HOWEVER STILL NOTED WITH HALLUCINATIONS. PATIENT WOULD VERBALIZE SEEING HER OR A FAMOUS PERSON ACROSS THE ROOM, BUT NO ONE IS VISIBLE. IVF INFUSING AND TOLERATING WELL, ZOSYN ALSO INFUSING WITH NO ADVERSE REACTION. NEEDS ATTENDED, TURNED AND REPOSITIONED EVERY 2 HOURS, ABLE TO ASK FOR A BEDPAN, BUT ALSO HAD EPISODES OF INCONTINENCE. Z-GUARD APPLIED TO SACRAL AREA, ON ISOFLEX BED, CALL LIGHT WITHIN REACH, WILL ENDORSE TO COPIER OPERATOR FOR YONY.
--- NOTE | 2018-03-17 19:05 | NUR ---
VICKIE MS NOTES RECEIVED PATIENT IN BED AWAKE ALERT AND ORIENTED X 1-2, NOTED WITH PERIODS OF CONFUSION AND FORGETFULNESS. ON 2 L VIA NC NO SOB NO DISTRESS PRESENT, ABLE TO MAKE SIMPLE NEEDS KNOWN, ORIENTED TO STAFF AND CALL LIGHT AND KEPT WITHIN REACH, FALL AND SAFETY PRECAUTIONS IN PLACE, LOW BED AND LOCKED, BED ALARM IN PLACE, SCD'S IN PLACE, HEELS OFFLOADED, PERINEAL CARE PROVIDED, SKIN ASSESSED AND INTACT, REPOSITIONED, IV SITE TO RIGHT WRIST #22 G INTACT AND PATENT. IV SITE TO LEFT AC #20G INTACT AND PATENT AND IVF RUNNING ORDERED. NO REDNESS, NO INFILTRATION PRESENT TO EITHER SITES. ALL NEEDS ATTENDED AT THIS TIME , REMAINS COMFORTABLE WILL CONTINUE TO MONITOR AND ATTEND TO NEEDS. Addendum: 03/18/18 at 0221 by ECHO DE LUNA RN CLARIFICATION -RN MS OPENING NOTES
[2018-03-17 20:00] VITALS: BP 145/66
[2018-03-17] MEDS: ENOXAPARIN SODIUM 40 MG/0.4 ML DISP.SYRIN SQ SCH (21:06)
[2018-03-17] MEDS: ATORVASTATIN 40 MG TABLET PO SCH (21:33)
[2018-03-18] MEDS: PIPERACILLIN /TAZOBACTAM 3.375 G in IV D5W 100 ML IV SCH ×3 (01:42→17:08)
--- NOTE | 2018-03-18 06:56 | NUR ---
RN MS CLOSING NOTES PATIENT IN BED AWAKE ALERT AND ORIENTED X 1-2, NOTED WITH PERIODS OF CONFUSION AND FORGETFULNESS. ON 2 L VIA NC NO SOB NO DISTRESS PRESENT, ABLE TO MAKE SIMPLE NEEDS KNOWN, CALL LIGHT KEPT WITHIN REACH, FALL AND SAFETY PRECAUTIONS IN PLACE, LOW BED AND LOCKED, BED ALARM IN PLACE, SCD'S IN PLACE, HEELS OFFLOADED, PERINEAL CARE PROVIDED, SACRAL SKIN ASSESSED AND INTACT, REPOSITIONED, IV SITE TO RIGHT WRIST #22 G INTACT AND PATENT. IV SITE TO LEFT AC #20G INTACT AND PATENT AND IVF RUNNING ORDERED. NO REDNESS, NO INFILTRATION PRESENT TO EITHER SITES. ALL NEEDS ATTENDED AT THIS TIME , REMAINS COMFORTABLE WILL CONTINUE TO MONITOR AND ENDORSE TO NEXT SHIFT.
--- NOTE | 2018-03-18 07:18 | NUR ---
RN NOTES PATIENT A/OX1, WITH CONFUSION, BREATHING EVEN AND UNLABORED, ON O2 AT 2LPM VIA NC, NO SOB NOTED, NOTED WITH NON-PRODUCTIVE COUGH, KEPT COMFORTABLE, IVF INFUSING AND TOLERATING WELL, CALL LIGHT WITHIN REACH, SAFETY MEASURES IN PLACED, WILL CONTINUE TO MONITOR.
[2018-03-18 08:00] VITALS: BP 120/63
[2018-03-18 08:04] LABS: BASOPHILS # (AUTO) 0.1 /CMM (0.0-0.2); BASOPHILS % (AUTO) 0.8 % (0.0-2.0); EOSINOPHILS % (AUTO) 2.5 % (0.0-6.0); HEMATOCRIT 31 % (33-45); HEMOGLOBIN 10.2 g/dL (11.5-14.8); LYMPHOCYTES # (AUTO) 1.2 /CMM (0.8-4.8); LYMPHOCYTES % (AUTO) 13.3 % (20.0-44.0); MEAN CORPUSCULAR HGB CONC 33 g/dl (31.0-36.0); MEAN CORPUSCULAR VOLUME 97 fL (82-100); MONOCYTES # (AUTO) 0.8 /CMM (0.1-1.30); MONOCYTES % (AUTO) 8.3 % (2.0-12.0); NEUTROPHILS # (AUTO) 6.8 /CMM (1.8-8.9); NEUTROPHILS % (AUTO) 75.1 % (43.0-81.0); PLATELET COUNT (AUTO) 453 /CMM (150-450); RED BLOOD CELL COUNT(AUTO) 3.17 MIL/uL (4.0-5.2); WHITE BLOOD COUNT (AUTO) 9.1 K/uL (4.3-11.0)
[2018-03-18 08:22] LABS: CALCIUM, SERUM 8.5 mg/dL (8.5-10.1); CREATININE 0.8 mg/dL (0.6-1.3); MAGNESIUM 1.8 mg/dL (1.8-2.4); PHOSPHORUS 3.1 mg/dL (2.5-4.9); POTASSIUM 4.4 mmol/L (3.5-5.1)
[2018-03-18] MEDS: ASPIRIN EC 81 MG TABLET.DR PO SCH (08:33)
[2018-03-18] MEDS: METOPROLOL TARTRATE 25 MG TABLET PO SCH ×2 (08:33→16:21)
[2018-03-18] MEDS: LEVOTHYROXINE SODIUM 137 MCG TABLET PO SCH (08:33)
[2018-03-18] MEDS: ESCITALOPRAM OXALATE (10 MG) 10 MG TABLET PO SCH (08:33)
[2018-03-18] MEDS: AMLODIPINE BESYLATE 5 MG TABLET PO SCH (08:34)
[2018-03-18] MEDS: VANCOMYCIN 0.75 GM in IV D5W 250 ML IV SCH (08:37)
[2018-03-18 16:00] VITALS: BP 157/57
[2018-03-18] MEDS: LACTOBACILLUS RHAMNOSUS GG 1 EACH CAP.SPRINK PO SCH (16:42)
[2018-03-18] MEDS: IV NS 0.9% 1,000 ML IV PRN (18:31)
--- NOTE | 2018-03-18 18:39 | NUR ---
RN NOTES PATIENT IN NO DISTRESS, BREATHING EVEN AND UNLABORED, NO SOB NOTED, PATIENT ASSISTED TO BEDSIDE COMMODE, PATIENT ABLE TO AMBULATE WITH STANDBY ASSIST, NO SIGNIFICANT CHANGE THIS SHIFT, NEEDS ATTENDED, CALL LIGHT WITHIN REACH, WILL ENDORSE TO REGULATORY INTERNSHIP FOR YONY.
[2018-03-18 20:01] VITALS: BP 165/66
--- NOTE | 2018-03-18 20:30 | NUR ---
NURSING ASSESSMENT: A/O X2 CONFUSED AND DELSIONAL A/H O2 @ 2 l N/C n.s 0.9% INFUSING 75 CC HR TO LT AC CYNTHIA WELL S/L TO R WRIST INTACT AND PATENT. LYING IN BED EYES CLOSED RESP EVEN AND UNLAB RESTING COMFORTABLY, sIDERAILS UP cALL LIGHT WITHIN REACH BED IN LOWEST POSITION. DENIES OF ANY DISTRESS.
[2018-03-18] MEDS: VANCOMYCIN 1 GM in IV D5W 250 ML IV SCH (20:56)
[2018-03-18] MEDS: ENOXAPARIN SODIUM 40 MG/0.4 ML DISP.SYRIN SQ SCH (21:57)
[2018-03-18] MEDS: ATORVASTATIN 40 MG TABLET PO SCH (21:58)
[2018-03-19] MEDS: PIPERACILLIN /TAZOBACTAM 3.375 G in IV D5W 100 ML IV SCH ×2 (01:42→10:13)
--- NOTE | 2018-03-19 06:01 | NUR ---
Closing Note: Lying in bed o2 @ 2 L N/c Iv N.S. 0.9% to Lt A.C. Mustapha well Siderails up, call light within reach appears resting comfortably. Denies of any distress through the shift.
--- NOTE | 2018-03-19 07:30 | NUR ---
RN MS NOTES PT IN BED, AWAKE, ALERT AND VERBALLY RESPONSIVE, DENIES PAIN, NOT IN DISTRESS, WITH PERIODS OF CONFUSION, IV FLUIDS INFUSING WELL, CALL LIGHT WITHIN REACH, NEEDS ATTENDED, KEPT WARM AND COMFORTABLE IN BED.
[2018-03-19 07:38] LABS: BASOPHILS # (AUTO) 0.1 /CMM (0.0-0.2); BASOPHILS % (AUTO) 0.9 % (0.0-2.0); EOSINOPHILS % (AUTO) 2.6 % (0.0-6.0); HEMATOCRIT 30 % (33-45); HEMOGLOBIN 10.1 g/dL (11.5-14.8); LYMPHOCYTES # (AUTO) 1.3 /CMM (0.8-4.8); MEAN CORPUSCULAR HGB CONC 33 g/dl (31.0-36.0); MEAN CORPUSCULAR VOLUME 97 fL (82-100); MONOCYTES # (AUTO) 0.6 /CMM (0.1-1.30); MONOCYTES % (AUTO) 8.2 % (2.0-12.0); NEUTROPHILS # (AUTO) 5.7 /CMM (1.8-8.9); NEUTROPHILS % (AUTO) 71.3 % (43.0-81.0); PLATELET COUNT (AUTO) 431 /CMM (150-450); RED BLOOD CELL COUNT(AUTO) 3.12 MIL/uL (4.0-5.2); WHITE BLOOD COUNT (AUTO) 7.9 K/uL (4.3-11.0)
[2018-03-19 07:57] LABS: CALCIUM, SERUM 8.4 mg/dL (8.5-10.1); CREATININE 0.7 mg/dL (0.6-1.3); MAGNESIUM 1.8 mg/dL (1.8-2.4); POTASSIUM 3.9 mmol/L (3.5-5.1)
[2018-03-19 08:00] VITALS: BP 124/65
[2018-03-19] MEDS: LEVOTHYROXINE SODIUM 137 MCG TABLET PO SCH (08:35)
[2018-03-19] MEDS: ESCITALOPRAM OXALATE (10 MG) 10 MG TABLET PO SCH (08:35)
[2018-03-19] MEDS: VANCOMYCIN 1 GM in IV D5W 250 ML IV SCH (08:36)
[2018-03-19] MEDS: METOPROLOL TARTRATE 25 MG TABLET PO SCH ×2 (08:36→17:06)
[2018-03-19] MEDS: ASPIRIN EC 81 MG TABLET.DR PO SCH (08:36)
[2018-03-19] MEDS: AMLODIPINE BESYLATE 5 MG TABLET PO SCH (08:36)
[2018-03-19] MEDS: LACTOBACILLUS RHAMNOSUS GG 1 EACH CAP.SPRINK PO SCH ×2 (08:37→17:06)
[2018-03-19] MEDS: ACETAMINOPHEN 325 MG TABLET PO PRN ×2 (10:20→17:09)
--- NOTE | 2018-03-19 13:00 | NUR ---
RN MS NOTES PT IN BED, ASLEEP, EASY TO AROUSE, ALERT AND ORIENTED, NO COMPLAINT OF PAIN, IV FLUIDS INFUSING WELL, CALL LIGHT WITHIN REACH, SEEN BY DENG SCOTT, PLAN OF CARE DISCUSSED WITH PT AND DAUGHTER, VERBALIZED UNDERSTANDING.
[2018-03-19] MEDS: CEFUROXIME AXETIL 250 MG TABLET PO SCH ×2 (13:13→21:00)
[2018-03-19 15:37] VITALS: BP 133/84
--- NOTE | 2018-03-19 18:30 | NUR ---
RN MS NOTES PT IN BED, AWAKE, ALERT AND ORIENTED, DENIES PAIN, NOT IN DISTRESS, CALL LIGHT WITHIN REACH, IV FLUIDS INFUSING WELL, PM MEDS GIVEN, ALL NEEDS ATTENDED.
--- NOTE | 2018-03-19 19:15 | NUR ---
MS RN OPENING NOTES PATIENT RECEIVED RESTING IN BED. BREATHING EVEN AND UNLABORED. NOT IN ANY DISTRESS. NO COMPLAINTS OF PAIN OR DISCOMFORT OF THIS TIME. SAFETY MEASURES IN PLACE. CALL ROSE WITHIN REACH. BED IN LOW, LOCKED POSITION. PATIENT STABLE ENDORSED BY THE MORNING RN. WILL CONTINUE TO MONITOR ACCORDINGLY
[2018-03-19 20:00] VITALS: BP 138/52
[2018-03-19] MEDS: ENOXAPARIN SODIUM 40 MG/0.4 ML DISP.SYRIN SQ SCH (21:10)
[2018-03-19] MEDS: ATORVASTATIN 40 MG TABLET PO SCH (21:11)
--- NOTE | 2018-03-19 21:17 | NUR ---
RN NOTE CEFTIN NOT GIVEN- NOT AVAILABLE PER PHARMACY
[2018-03-20 06:30] LABS: BASOPHILS # (AUTO) 0.1 /CMM (0.0-0.2); BASOPHILS % (AUTO) 0.9 % (0.0-2.0); EOSINOPHILS % (AUTO) 3.2 % (0.0-6.0); HEMATOCRIT 31 % (33-45); HEMOGLOBIN 10.4 g/dL (11.5-14.8); LYMPHOCYTES # (AUTO) 1.4 /CMM (0.8-4.8); LYMPHOCYTES % (AUTO) 16.4 % (20.0-44.0); MEAN CORPUSCULAR HGB CONC 33 g/dl (31.0-36.0); MEAN CORPUSCULAR VOLUME 96 fL (82-100); MONOCYTES # (AUTO) 0.6 /CMM (0.1-1.30); MONOCYTES % (AUTO) 7.5 % (2.0-12.0); NEUTROPHILS # (AUTO) 6.1 /CMM (1.8-8.9); PLATELET COUNT (AUTO) 498 /CMM (150-450); RED BLOOD CELL COUNT(AUTO) 3.27 MIL/uL (4.0-5.2); WHITE BLOOD COUNT (AUTO) 8.5 K/uL (4.3-11.0)
[2018-03-20 06:40] LABS: CALCIUM, SERUM 8.7 mg/dL (8.5-10.1); CREATININE 0.6 mg/dL (0.6-1.3); MAGNESIUM 1.9 mg/dL (1.8-2.4); PHOSPHORUS 3.1 mg/dL (2.5-4.9)
--- NOTE | 2018-03-20 06:57 | NUR ---
MS RN CLOSING NOTES PATIENT RESTING IN BED, ALERT AND ORIENTED X 1, CONFUSED, FORGETFUL. BREATHING EVEN AND UNLABORED. NO COMPLAINTS OF PAIN OR DISCOMFORT OF THIS TIME. ALL NEEDS ATTENDED TO. ALL DUE MEDICATIONS GIVEN ORDERED. CALL ROSE WITHIN REACH. BED IN LOW, LOCKED POSITION. WILL ENDORSE YONY TO ONCOMING RN.
[2018-03-20 08:00] VITALS: BP 163/93
--- NOTE | 2018-03-20 08:10 | NUR ---
MS RN RECEIVED ON BED, AWAKE,ORIENTED X1, CONFUSE,NOT IN ANY FORM OF DISTRESS, RESPIRATIONS EVEN AND UNLABORED,NO SOB NOTED, LUNGS ARE DIMINISHED, ABDOMEN SOFT,POSITIVE BOWEL SOUNDS,DENIES PAIN AT THIS TIME,WILL MONITOR PATIENT'S CONDITION.
--- NOTE | 2018-03-20 09:30 | NUR ---
MS JOHNSTON BREAKFAST SERVED,DUE MEDS GIVEN,TOLERATED WELL
[2018-03-20] MEDS: LEVOTHYROXINE SODIUM 137 MCG TABLET PO SCH (09:46)
[2018-03-20 09:47] VITALS: BP 163/93
[2018-03-20] MEDS: LACTOBACILLUS RHAMNOSUS GG 1 EACH CAP.SPRINK PO SCH (09:47)
[2018-03-20] MEDS: METOPROLOL TARTRATE 25 MG TABLET PO SCH (09:47)
[2018-03-20] MEDS: AMLODIPINE BESYLATE 5 MG TABLET PO SCH (09:47)
[2018-03-20] MEDS: ESCITALOPRAM OXALATE (10 MG) 10 MG TABLET PO SCH (09:47)
[2018-03-20] MEDS: ASPIRIN EC 81 MG TABLET.DR PO SCH (09:49)
[2018-03-20] MEDS ORDERED: Cefuroxime Axetil PO (09:58)
[2018-03-20] MEDS ORDERED: LACT1CAP72 PO (09:58)
[2018-03-20] MEDS: CEFUROXIME AXETIL 250 MG TABLET PO SCH (10:28)
--- NOTE | 2018-03-20 11:00 | NUR ---
MS VICKIE WAS SEEN BY SERGIO WU/ ORDERS MADE AND CARRIED OUT.
--- NOTE | 2018-03-20 13:20 | NUR ---
MS RN WAS TRANSFERRED TO [facility],REPORT GIVEN TO FRANCISCO JOHNSTON,ALL NEEDS ATTENDED.
[2018-05-10] MEDS ORDERED: APIX5TAB PO (13:52)
== END 2018-03-20 13:45 | DRG 194 ==
LOC: ER 17:45 → TELE 20:53 → MED 03-17 09:13
PROVIDERS: ATTEND Internal Medicine
DX: J15.9 Unspecified bacterial pneumonia (principal); N39.0 Urinary tract infection, site not specified; F05 Delirium due to known physiological condition; K21.9 Gastro-esophageal reflux disease without esophagitis; F32.9 Major depressive disorder, single episode, unspecified; D64.9 Anemia, unspecified; F02.80 Dementia in other diseases classified elsewhere, unspecified severity, without behavioral disturbance, psychotic disturbance, mood disturbance, and anxiety; G30.9 Alzheimer's disease, unspecified; F41.9 Anxiety disorder, unspecified; I25.10 Atherosclerotic heart disease of native coronary artery without angina pectoris; E03.9 Hypothyroidism, unspecified; E78.5 Hyperlipidemia, unspecified; I10 Essential (primary) hypertension; R79.1 Abnormal coagulation profile; Y95 Nosocomial condition; F09 Unspecified mental disorder due to known physiological condition; B95.1 Streptococcus, group B, as the cause of diseases classified elsewhere; Z79.82 Long term (current) use of aspirin; Z79.899 Other long term (current) drug therapy
CPT/HCPCS: 36415; 71045-TC; 71046; 80048-TC; 80053-TC; 80061-TC; 80202-TC; 81000-TC; 83605-TC; 83735-TC; 84100-TC; 84443-TC; 84484-TC; 85025-TC; 85378-TC; 85730-TC; 87040-TC; 87081-TC; 87086-TC; 87400; 97116-TC; 97530-TC; G0378; J1650; J2543; J3370; J3475; J7030; J7050; J7060; Q9967

== ENCOUNTER 2018-04-17 17:37 | Inpatient (IN) | payer MEDICARE, MEDICAID ==
[~2018-04-17] VITALS: Ht 162.6 cm; Wt 69.4 kg
[~2018-04-17 17:37] MED LIST changes: +Cefuroxime Axetil PO; +LACT1CAP72 PO; -PIPE3.379 IV; -VANC1PLA10 IV
--- NOTE | 2018-04-17 17:40 | NUR ---
RYAN FROM [facility] FOR MED CLEARANCE FOR GPS ADMISSION; AOX2, DOES NOT APPROPRIETLY ANSWERS QUESTIONS, PT ON MONITOR, VSS, PENDING ER PROVIDER JOHANNA
[2018-04-17 18:41] LABS: CALCIUM, SERUM 9.6 mg/dL (8.5-10.1); CARBON DIOXIDE 32 mmol/L (21-32); CHLORIDE 105 mmol/L (98-107); CREATININE 0.9 mg/dL (0.6-1.3); GLUCOSE 104 mg/dL (74-106); POTASSIUM 3.7 mmol/L (3.5-5.1); SODIUM SERUM 142 mmol/L (136-145); UREA NITROGEN, BLOOD 25 mg/dL (7-18)
[2018-04-17 18:44] LABS: BASOPHILS # (AUTO) 0.1 /CMM (0.0-0.2); BASOPHILS % (AUTO) 1.1 % (0.0-2.0); EOSINOPHILS % (AUTO) 2.3 % (0.0-6.0); HEMATOCRIT 35 % (33-45); HEMOGLOBIN 11.3 g/dL (11.5-14.8); LYMPHOCYTES # (AUTO) 2.4 /CMM (0.8-4.8); LYMPHOCYTES % (AUTO) 33.4 % (20.0-44.0); MEAN CORPUSCULAR HGB CONC 33 g/dl (31.0-36.0); MEAN CORPUSCULAR VOLUME 99 fL (82-100); MONOCYTES # (AUTO) 0.6 /CMM (0.1-1.30); NEUTROPHILS % (AUTO) 55.2 % (43.0-81.0); PLATELET COUNT (AUTO) 196 /CMM (150-450); RED BLOOD CELL COUNT(AUTO) 3.48 MIL/uL (4.0-5.2); WHITE BLOOD COUNT (AUTO) 7.2 K/uL (4.3-11.0)
[2018-04-17 18:47] LABS: ACETAMINOPHEN < 2 ug/ml (10-30); ALANINE AMINOTRANSFERASE 30 U/L (12-78); ALBUMIN 3.4 g/dL (3.4-5.0); ALCOHOL, BLOOD < 3 mg/dL (0-0); ALKALINE PHOSPHATASE 83 U/L (46-116); ASPARTATE AMINOTRANSFERASE 23 U/L (15-37); BILIRUBIN,DIRECT 0.1 mg/dL (0.0-0.2); BILIRUBIN,TOTAL 0.2 mg/dL (0.2-1.0); SALICYLATE 1.2 mg/dL (2.8-20.0); TOTAL PROTEIN, SERUM 7.3 g/dL (6.4-8.2)
[2018-04-17] MEDS ORDERED: LORAZEPAM INJ 2 MG/ML VIAL ONE (19:17)
[2018-04-17 19:24] LABS: APPEARANCE,URINE Clear (CLEAR); BILIRUBIN,URINE Negative (NEGATIVE); BLOOD, URINE Small Ery/uL (NEGATIVE); COLOR,URINE Yellow (YELLOW); KETONES,URINE Trace (NEGATIVE); LEUKOCYTE ESTERASE ,URINE Negative (NEGATIVE); NITRITE, URINE Negative (NEGATIVE); PROTEIN,URINE Negative (NEGATIVE); UGLUCOSE Negative (NEGATIVE)
[2018-04-17] MEDS ORDERED: LORAZEPAM INJ 2 MG/ML VIAL IV ONE (19:30)
[2018-04-17] MEDS ORDERED: LORAZEPAM INJ 2 MG/ML VIAL IM ONE (19:30)
[2018-04-17 19:39] LABS: BACTERIA,URINE Few /HPF (None Seen); SQUAMOUS EPITHELIAL CELL,UR Few /HPF (None Seen); WBC,URINE 0-2 /HPF (0-3)
--- NOTE | 2018-04-17 20:32 | NUR ---
TRANSFERRED TO GPS VIA [facility]
[2018-04-17 21:00] VITALS: BP 136/68
[2018-04-17] MEDS ORDERED: MAG HYDROX/AL HYDROX/SIMETH 30 ML UDC PO PRN ×2 (21:00→23:30)
[2018-04-17] MEDS ORDERED: ACETAMINOPHEN 325 MG TABLET PO PRN (21:00)
[2018-04-17] MEDS ORDERED: TEMAZEPAM 7.5 MG CAPSULE PO PRN (21:00)
[2018-04-17] MEDS ORDERED: MAGNESIUM HYDROXIDE 30 ML UDC PO PRN ×2 (21:00→23:30)
[2018-04-17] MEDS ORDERED: LORAZEPAM 0.5 MG TABLET PO PRN (21:00)
[2018-04-17] MEDS ORDERED: hydrALAZINE HCL 25 MG TABLET PO PRN (23:30)
[2018-04-17] MEDS ORDERED: NA PHOS,M-B/NA PHOS,DI-BA 1 EA ENEMA RC PRN (23:30)
--- NOTE | 2018-04-18 01:55 | NUR ---
GPS SUPERINTENDENT STATIONS NOTES: ADMITTED A 67YO FAMEL PATIENT FROM [facility] ON 5150 HOLD FOR DANGER TO OTHERS AND GRAVE DISABILITY. PER HOLD THE PATIENT HAS BEEN ACTING OUT AGGRESSIVELY TOWARDS STAFF AND OTER RESIDENTS,PATIENT HAS BEEN HITTING FLORES, , THREATENED TO HURT STAFF AND OTHER RESIDENTS.PATIENT HAS DELUSIONAL THOUGHTS THAT HER FATHER IS WINNING A GRAMMY AWARD, AND THAT STAFF FROM THE [facility] ARE HOLDING HER HOSTAGE. PATIENT HAS TROUBLE CALMING HER SELF DOWN , TH STAFF THEREFORE ARE IN FEAR OF THEIR SAFETY AND OTHER RESIDENTS WELL. PATIENT IS UNDER THE CARE OF DR. BROWN AND [facility], ANDREAS MENENDEZ NP. BOTH MADE AWARE OF THE ADMISION. SONIA MENENDEZ CAME TO THE UNIT AND REMINDED OF THE MED RECON. WHEN PATIENT CAME INTO HE UNIT, PATIENT WAS SOUND ASLEEP BECAUSE OF THE IM SHOT GIVEN AT ER.WILL ORIENT PATIENT TO UNIT, STAFF, CAREPLANS AND DOCTORS ONCE AWAKE. FULL SKIN AND BODY ASSESSMENT DONE BY OR FIRST ASSIST REGISTERED NURSE AND ASHLEY WADE. PATIENT PRESENTS WITH NO OPEN WOUND OR SKIN ISSUES THIS TIME. WILL DO MRSA SWABBING IN THE MORNING ONCE PATIENT IS AWAKE. BELONGINGS AND CONTRABAND CHECKED. Q15 MIN CHECKS INITIATED. CARE PLAN ACKNOWLEDGED AND IMPLEMENTED. SAFETY ENVIRONMENTAL CHECK DONE. WILL CONTINUE TO MONITOR WHILE IN PATIENT.
[2018-04-18] MEDS: LEVOTHYROXINE SODIUM 137 MCG TABLET PO SCH (07:37)
[2018-04-18 08:00] VITALS: BP 147/55
[2018-04-18] MEDS: MULTIVIT W/MINERALS 1 TAB TABLET PO SCH (08:26)
[2018-04-18] MEDS: ASPIRIN EC 81 MG TABLET.DR PO SCH (08:26)
[2018-04-18] MEDS: METOPROLOL TARTRATE 25 MG TABLET PO SCH ×2 (08:26→16:23)
[2018-04-18] MEDS: LACTOBACILLUS RHAMNOSUS GG 1 EACH CAP.SPRINK PO SCH ×2 (08:26→16:22)
[2018-04-18] MEDS: AMLODIPINE BESYLATE 5 MG TABLET PO SCH (08:27)
[2018-04-18] MEDS ORDERED: HYDROCHLOROTHIAZIDE 12.5 MG CAPSULE PO SCH (09:00)
[2018-04-18] MEDS: DIVALPROEX SODIUM 125 MG CAP.SPRINK PO SCH ×3 (11:07→16:22)
[2018-04-18] MEDS: QUETIAPINE FUMARATE 25 MG TABLET PO SCH ×2 (11:38→16:22)
[2018-04-18] MEDS: ESCITALOPRAM OXALATE (10 MG) 10 MG TABLET PO SCH (11:38)
--- NOTE | 2018-04-18 13:15 | NUR ---
SW attempted to conduct the psychosocial assessment with the pt but she refused to answer any questions because she was tired and she stated that she would like the SW to come back the next day.
[2018-04-18 16:00] VITALS: BP 145/60
[2018-04-18 19:59] VITALS: BP 140/53
[2018-04-18] MEDS: ATORVASTATIN 40 MG TABLET PO SCH (21:13)
[2018-04-18 23:00] VITALS: BP 132/64
[2018-04-19 08:00] VITALS: BP 142/67
[2018-04-19] MEDS: ESCITALOPRAM OXALATE (10 MG) 10 MG TABLET PO SCH (08:39)
[2018-04-19] MEDS: METOPROLOL TARTRATE 25 MG TABLET PO SCH ×2 (08:39→16:19)
[2018-04-19] MEDS: DIVALPROEX SODIUM 125 MG CAP.SPRINK PO SCH ×3 (08:39→16:18)
[2018-04-19] MEDS: MULTIVIT W/MINERALS 1 TAB TABLET PO SCH (08:39)
[2018-04-19] MEDS: ASPIRIN EC 81 MG TABLET.DR PO SCH (08:39)
[2018-04-19] MEDS: AMLODIPINE BESYLATE 5 MG TABLET PO SCH (08:39)
[2018-04-19] MEDS: QUETIAPINE FUMARATE 25 MG TABLET PO SCH ×2 (08:40→16:18)
[2018-04-19] MEDS: HYDROCHLOROTHIAZIDE 25 MG TABLET PO SCH (08:42)
[2018-04-19] MEDS: LACTOBACILLUS RHAMNOSUS GG 1 EACH CAP.SPRINK PO SCH ×2 (08:42→16:18)
[2018-04-19] MEDS: LEVOTHYROXINE SODIUM 137 MCG TABLET PO SCH (08:47)
--- NOTE | 2018-04-19 12:40 | NUR ---
NILE contacted Toma ([phone]) from [facility] and inquired about whether or not the pt can return to their facility. She stated that that the pt is approved to return.
--- NOTE | 2018-04-19 13:15 | NUR ---
NILE called the pt's brother, Santo Reardon ([phone]), and left a message for him on his voicemail stating that the SW would like to discuss the pt's discharge plan.
--- NOTE | 2018-04-19 13:46 | NUR ---
Initial Discharge Plan: Pt currently resides at [facility] located at [address] [place] [address]. NILE contacted Toma ([phone]), about whether the pt can return and it was stated that she can. NILE will work with the pt and the MD regarding appropriate discharge planning. NILE will form a safe and proper discharge.
[2018-04-19 16:00] VITALS: BP 133/59
[2018-04-19 20:00] VITALS: BP 138/52
[2018-04-19] MEDS: ATORVASTATIN 40 MG TABLET PO SCH (21:53)
--- NOTE | 2018-04-20 03:21 | NUR ---
PATIENT ADMITTED 04/19/2018 AT AROUND 1845 ON 5150 HOLD FOR [place]. RECEIVED PATIENT AT THE DINING AREA SITTING ON THE CASSIUS-CHAIR. UPON FACE TO FACE, PATIENT WAS PARANOID,, DELUSIONAL, CONFUSED, YELLING AT STAFF, AND BERATING HER . DURING ASSESSMENT, PATIENT IS CALM, ALERT, CONFUSED, VERY UNCOOPERATIVE. UNABLE TO OBTAIN PERTINENT INFORMATIONS DUE TO HER CONFUSION. PATIENT STARTED TO YELL, SCREAM WHEN ASKED ROUTINE QUESTIONS. PATIENT CONFUSED, PARANOID, AGITATED, LOUD,ANXIOUS. SHOWS NO S/S OF ANY PAIN, NO APPARENT DISTRESS NOTED, ROOM AIR SATURATION 97%, BELONGINGS WERE INVENTORIED AND CHECKED FOR CONTRABAND. SKIN ASSESSMENT DONE, NOTED REDNESS RASHES ON BOTH BREAST, GROIN, LEFT HIP. DISCOLORATION ON BOTH ARMS AND LEGS, WOUND CONSULT ORDERED. MED RECON DONE BY SONIA MENENDEZ, NOTIFIED ABOUT THE ADMISSION. DAUGHTER SARAH CALLED THE UNIT, AWARE OF HER MOTHER'S ADMISSION. PATIENT IS C/O OF PAIN ON HER LEFT KNEE, 3/10 ON PAIN SCALE. PLACED PATIENT IN BED, PHOTOS DONE. REQUIRES MODERATE ASSISTANCE WITH ADL'S. PATIENT REFUSED TO TAKE ANY MEDICATIONS, STATED, " I KNOW YOU ARE TRYING TO KILL ME, YOU KNOW HOW TO DO IT, NO, I AM NOT TAKING ANY MEDICINE." BED LOCKED AND PLACED ON LOWEST POSITION FOR SAFETY. WILL CONTINUE TO MONITOR Q 15 MINS. TO MAINTAIN SAFETY. Addendum: 04/20/18 at 0342 by JOSÉ ANTONIO VASQUEZ RN ADMISSION NOTE ABOVE INTENDED FOR ANOTHER PATIENT. USER ERROR.
[2018-04-20 08:00] VITALS: BP 140/88
[2018-04-20] MEDS: LEVOTHYROXINE SODIUM 137 MCG TABLET PO SCH (08:46)
[2018-04-20] MEDS: DIVALPROEX SODIUM 125 MG CAP.SPRINK PO SCH ×3 (08:46→16:17)
[2018-04-20] MEDS: LACTOBACILLUS RHAMNOSUS GG 1 EACH CAP.SPRINK PO SCH ×2 (08:46→16:17)
[2018-04-20] MEDS: ASPIRIN EC 81 MG TABLET.DR PO SCH (08:46)
[2018-04-20] MEDS: QUETIAPINE FUMARATE 25 MG TABLET PO SCH ×2 (08:46→16:17)
[2018-04-20] MEDS: MULTIVIT W/MINERALS 1 TAB TABLET PO SCH (08:46)
[2018-04-20] MEDS: AMLODIPINE BESYLATE 5 MG TABLET PO SCH (08:47)
[2018-04-20] MEDS: HYDROCHLOROTHIAZIDE 25 MG TABLET PO SCH (08:47)
[2018-04-20] MEDS: METOPROLOL TARTRATE 25 MG TABLET PO SCH ×2 (08:48→16:17)
[2018-04-20] MEDS: ESCITALOPRAM OXALATE (10 MG) 10 MG TABLET PO SCH (08:49)
[2018-04-20 16:00] VITALS: BP 135/64
[2018-04-20 20:00] VITALS: BP 154/68
[2018-04-20] MEDS: ATORVASTATIN 40 MG TABLET PO SCH (21:04)
[2018-04-21 08:00] VITALS: BP 152/59
[2018-04-21] MEDS: AMLODIPINE BESYLATE 5 MG TABLET PO SCH (09:00)
[2018-04-21] MEDS: ASPIRIN EC 81 MG TABLET.DR PO SCH (09:53)
[2018-04-21] MEDS: DIVALPROEX SODIUM 125 MG CAP.SPRINK PO SCH ×3 (09:53→17:34)
[2018-04-21] MEDS: QUETIAPINE FUMARATE 25 MG TABLET PO SCH ×2 (09:53→17:35)
[2018-04-21] MEDS: LACTOBACILLUS RHAMNOSUS GG 1 EACH CAP.SPRINK PO SCH ×2 (09:53→17:34)
[2018-04-21] MEDS: HYDROCHLOROTHIAZIDE 25 MG TABLET PO SCH (09:54)
[2018-04-21] MEDS: MULTIVIT W/MINERALS 1 TAB TABLET PO SCH (09:55)
[2018-04-21] MEDS: LEVOTHYROXINE SODIUM 137 MCG TABLET PO SCH (09:55)
[2018-04-21] MEDS: METOPROLOL TARTRATE 25 MG TABLET PO SCH ×2 (09:56→17:34)
[2018-04-21] MEDS: ESCITALOPRAM OXALATE (10 MG) 10 MG TABLET PO SCH (09:56)
[2018-04-21 16:00] VITALS: BP 129/61
[2018-04-21 20:00] VITALS: BP 119/54
[2018-04-21] MEDS: ATORVASTATIN 40 MG TABLET PO SCH (22:19)
[2018-04-21] MEDS: TEMAZEPAM 7.5 MG CAPSULE PO PRN (22:49)
[2018-04-22 08:00] VITALS: BP 103/66
[2018-04-22] MEDS: HYDROCHLOROTHIAZIDE 25 MG TABLET PO SCH (08:12)
[2018-04-22] MEDS: METOPROLOL TARTRATE 25 MG TABLET PO SCH ×2 (08:12→17:00)
[2018-04-22] MEDS: AMLODIPINE BESYLATE 5 MG TABLET PO SCH (08:13)
[2018-04-22] MEDS: LEVOTHYROXINE SODIUM 137 MCG TABLET PO SCH (08:53)
[2018-04-22] MEDS: DIVALPROEX SODIUM 125 MG CAP.SPRINK PO SCH ×3 (08:53→17:17)
[2018-04-22] MEDS: ASPIRIN EC 81 MG TABLET.DR PO SCH (08:53)
[2018-04-22] MEDS: MULTIVIT W/MINERALS 1 TAB TABLET PO SCH (08:53)
[2018-04-22] MEDS: LACTOBACILLUS RHAMNOSUS GG 1 EACH CAP.SPRINK PO SCH ×2 (08:53→17:17)
[2018-04-22] MEDS: QUETIAPINE FUMARATE 25 MG TABLET PO SCH ×2 (08:54→17:18)
[2018-04-22] MEDS: ESCITALOPRAM OXALATE (10 MG) 10 MG TABLET PO SCH (08:54)
[2018-04-22] MEDS: clonazePAM 0.5 MG TABLET PO PRN (13:48)
[2018-04-22 16:00] VITALS: BP 124/64
--- NOTE | 2018-04-22 17:55 | NUR ---
GPS/RN PT LOWERED HERSELF ON THE FLOOR AND THAN LAY DOWN IN FRONT OF PRIMARY NURSE(WITNESSED BY ALAYNA ZAMBRANO AND ALESSANDRO ZAMBRANO) PT WAS MEDICATED, HELPED TO GET UP AND PLACED TO THE GERICHAIR IN ACTIVITY ROOM. CHARGE NURSE SAHARA JOHNSTON AWARE. PT IS DELUSIONAL AND TALKS TO HERSELF.
--- NOTE | 2018-04-22 19:30 | NUR ---
GPS RN NOTE, RECEIVED PATIENT AWAKE AND IN BED NO S/S OR COMPLAINTS OF PAIN AT THIS TIME. PATIENT IS DISPLAYING NO S/S OF APPARENT DISTRESS AT THIS TIME. PATIENT BREATHING IS UNLABORED WITH EQUAL RISE AND FALL OF THE CHEST. PATIENT IS ALERT AND ORIENTED X 1-2 ON ROOM AIR WITH A SPO2 0F 95%. PATIENT IS MED COMPLIANT, DISORGANIZED, DELUSIONAL, COOPERATIVE, CONFUSED AT TIME, AND NEEDS REORIENTATION. PATIENT DENIES SUICIDE AND HOMICIDAL IDEATIONS AT THIS TIME. PATIENT ASSISTED WITH TURNING AND REPOSITIONING Q2HR AND PRN FOR COMFORT AND CIRCULATION. PATIENT HAS NO NEEDS AT THIS TIME. PATIENT EDUCATED ON THE USE OF THE CALL ROSE. PATIENT BED SIDE RAILS ARE UP X 2 FOR SAFETY, BED IS LOCKED AND LOW. WILL CONTINUE TO MONITOR AND MAINTAIN SAFETY Q15 MIN WITH THE HELP OF STAFF.
[2018-04-22 20:00] VITALS: BP 121/57
[2018-04-22] MEDS: ATORVASTATIN 40 MG TABLET PO SCH (21:59)
[2018-04-23] MEDS: LEVOTHYROXINE SODIUM 137 MCG TABLET PO SCH (07:30)
[2018-04-23 08:17] VITALS: BP 139/69
[2018-04-23] MEDS: LACTOBACILLUS RHAMNOSUS GG 1 EACH CAP.SPRINK PO SCH ×2 (09:21→17:02)
[2018-04-23] MEDS: DIVALPROEX SODIUM 125 MG CAP.SPRINK PO SCH ×3 (09:21→17:02)
[2018-04-23] MEDS: HYDROCHLOROTHIAZIDE 25 MG TABLET PO SCH (09:22)
[2018-04-23] MEDS: ASPIRIN EC 81 MG TABLET.DR PO SCH (09:22)
[2018-04-23] MEDS: METOPROLOL TARTRATE 25 MG TABLET PO SCH ×2 (09:27→17:08)
[2018-04-23] MEDS: QUETIAPINE FUMARATE 25 MG TABLET PO SCH ×2 (09:28→17:02)
[2018-04-23] MEDS: AMLODIPINE BESYLATE 5 MG TABLET PO SCH (09:28)
[2018-04-23] MEDS: ESCITALOPRAM OXALATE (10 MG) 10 MG TABLET PO SCH (09:28)
[2018-04-23] MEDS: MULTIVIT W/MINERALS 1 TAB TABLET PO SCH (09:29)
[2018-04-23] MEDS: clonazePAM 0.5 MG TABLET PO PRN ×3 (10:16→23:34)
--- NOTE | 2018-04-23 10:21 | NUR ---
RN NOTE :MEDICATED WITH KLONOPIN 0.5MG PO X1 FOR ANXIETY WILL CONTINUE TO MONITOR .
[2018-04-23 16:00] VITALS: BP 150/58
[2018-04-23 20:00] VITALS: BP 139/41
[2018-04-23] MEDS: ATORVASTATIN 40 MG TABLET PO SCH (21:14)
[2018-04-23 23:00] VITALS: BP 128/65
--- NOTE | 2018-04-23 23:36 | NUR ---
GPS RN NOTES: PT. BEHAVIOR VERY AGGRESSIVE YELLING SCREAMING , UNCOOPERTIVE, PT. GETTING OUT THE BED, STAFF MEMEBER HELPING HER , BACK TO BED AND PT. NOT FOLLWING ANY REDIRECTIONS, KLONOPIN 0.5 MG PO PRN GIVEN , WILL CONTINUE TO MONITOR.
[2018-04-24 08:00] VITALS: BP 116/74
[2018-04-24] MEDS: MULTIVIT W/MINERALS 1 TAB TABLET PO SCH (08:00)
[2018-04-24] MEDS: LEVOTHYROXINE SODIUM 137 MCG TABLET PO SCH (08:00)
[2018-04-24] MEDS: DIVALPROEX SODIUM 125 MG CAP.SPRINK PO SCH ×3 (08:00→17:26)
[2018-04-24] MEDS: ESCITALOPRAM OXALATE (10 MG) 10 MG TABLET PO SCH (08:01)
[2018-04-24] MEDS: QUETIAPINE FUMARATE 25 MG TABLET PO SCH ×2 (08:01→17:26)
[2018-04-24] MEDS: ASPIRIN EC 81 MG TABLET.DR PO SCH (08:01)
[2018-04-24] MEDS: HYDROCHLOROTHIAZIDE 25 MG TABLET PO SCH (08:01)
[2018-04-24] MEDS: LACTOBACILLUS RHAMNOSUS GG 1 EACH CAP.SPRINK PO SCH ×2 (08:01→17:26)
[2018-04-24] MEDS: METOPROLOL TARTRATE 25 MG TABLET PO SCH ×2 (09:00→17:26)
[2018-04-24] MEDS: AMLODIPINE BESYLATE 5 MG TABLET PO SCH (09:00)
[2018-04-24] MEDS: clonazePAM 0.5 MG TABLET PO PRN (13:05)
--- NOTE | 2018-04-24 14:17 | NUR ---
GPS SOCIAL SERVICES COORDINATOR: NOTES SEEN BY DR. BROWN WITH NEW ORDERS. ORDERS ACKNOWLEDGED.
[2018-04-24 16:03] VITALS: BP 138/60
[2018-04-24 20:00] VITALS: BP 132/66
[2018-04-24] MEDS: ATORVASTATIN 40 MG TABLET PO SCH (21:10)
[2018-04-25 08:00] VITALS: BP 127/52
[2018-04-25] MEDS: DIVALPROEX SODIUM 125 MG CAP.SPRINK PO SCH ×3 (08:28→17:00)
[2018-04-25] MEDS: ASPIRIN EC 81 MG TABLET.DR PO SCH (08:28)
[2018-04-25] MEDS: LACTOBACILLUS RHAMNOSUS GG 1 EACH CAP.SPRINK PO SCH ×2 (08:28→17:00)
[2018-04-25] MEDS: LEVOTHYROXINE SODIUM 137 MCG TABLET PO SCH (08:29)
[2018-04-25] MEDS: MULTIVIT W/MINERALS 1 TAB TABLET PO SCH (08:29)
[2018-04-25] MEDS: QUETIAPINE FUMARATE 25 MG TABLET PO SCH ×2 (08:29→17:00)
[2018-04-25] MEDS: METOPROLOL TARTRATE 25 MG TABLET PO SCH ×2 (08:29→17:00)
[2018-04-25] MEDS: ESCITALOPRAM OXALATE (10 MG) 10 MG TABLET PO SCH (08:29)
[2018-04-25] MEDS: HYDROCHLOROTHIAZIDE 25 MG TABLET PO SCH (08:30)
[2018-04-25] MEDS: AMLODIPINE BESYLATE 5 MG TABLET PO SCH (08:30)
--- NOTE | 2018-04-25 11:47 | NUR ---
GPS RN NOTE: NOTED FEELING PALE IN THE DINNING ROOM AT 0923 VS CHECKED BP 69/43 P 54, O2 91. PT RESPONSIVE, PLACED IN THE ROOM IN BED WATER GIVEN BP RECHECKED 143/64 P 57. 02 97.PT STABLE AT THIS TIME NO S/S DISTRESS NOTED. SONIA SOTO NOTIFIED WITH ORDERS PLACED ,WILL CONTINUE MONITORING FOR SAFETY AND BEHAVIOR Q 15 MIN
--- NOTE | 2018-04-25 12:41 | NUR ---
NILE contacted Toma ([phone]) from [facility] and informed her that the pt will be discharged tomorrow back to the facility.
--- NOTE | 2018-04-25 12:43 | NUR ---
NILE called the pt's brother, Santo Reardon ([phone]), and left a message for him on his voicemail stating that the pt will be discharged back to [facility] tomorrow. The facility has reaccepted the pt and the psychiatrist believes that she is at her baseline and she can continue to be monitored at the facility.
[2018-04-25 16:00] VITALS: BP 115/52
[2018-04-25 20:20] VITALS: BP 130/45
[2018-04-25] MEDS: ATORVASTATIN 40 MG TABLET PO SCH (20:35)
[2018-04-26] MEDS: TEMAZEPAM 7.5 MG CAPSULE PO PRN (00:11)
[2018-04-26 08:00] VITALS: BP 126/73
[2018-04-26] MEDS: DIVALPROEX SODIUM 125 MG CAP.SPRINK PO SCH (08:06)
[2018-04-26] MEDS: LACTOBACILLUS RHAMNOSUS GG 1 EACH CAP.SPRINK PO SCH (08:06)
[2018-04-26] MEDS: ESCITALOPRAM OXALATE (10 MG) 10 MG TABLET PO SCH (08:07)
[2018-04-26] MEDS: LEVOTHYROXINE SODIUM 137 MCG TABLET PO SCH (08:07)
[2018-04-26] MEDS: HYDROCHLOROTHIAZIDE 25 MG TABLET PO SCH (08:07)
[2018-04-26] MEDS: ASPIRIN EC 81 MG TABLET.DR PO SCH (08:07)
[2018-04-26] MEDS: MULTIVIT W/MINERALS 1 TAB TABLET PO SCH (08:08)
[2018-04-26] MEDS: QUETIAPINE FUMARATE 25 MG TABLET PO SCH (08:09)
[2018-04-26] MEDS: AMLODIPINE BESYLATE 5 MG TABLET PO SCH (08:10)
[2018-04-26 09:22] VITALS: BP 150/60
[2018-04-26] MEDS: METOPROLOL TARTRATE 25 MG TABLET PO SCH (09:22)
--- NOTE | 2018-04-26 10:03 | NUR ---
DR. BROWN GAVE AND ORDER TO D/C HOLD AND D/C TO [facility], TO CONTINUE SAME MEDS AND INCLUDING PRN AND TO FOLLOW UP WITH PSYCH AND MEDICAL DOCTORS. PT. WITHOUT DISTRESS, DENIES SUICIDAL AND HOMICIDAL.
--- NOTE | 2018-04-26 11:36 | NUR ---
DENG BURNS (CHIEF VENDOR QUALITY) MADE AWARE OF THE DISCHARGE ANS SAID TO CONTINUE SAME MEDS INCLUDING PRN AND NOTIFIED ABOUT THE BP. PT, SIGNED THE DISCHARGED PAPERS AND BELONGINGS READY. REPORT GIVEN TO FRANCISCO [facility].
--- NOTE | 2018-04-26 12:45 | NUR ---
PT. LEFT THE UNIT VIA AMBULANCE WITH BELONGINGS AND TRANSPORTED VIA A GURNEY. LEFT WITHOUT DISTRESS AND ON STABLE CONDITION. V/S TAKEN: BP152/88, SC 59, RR 18, TEMP 98.0 AND OXYGEN SAT 95%.
--- NOTE | 2018-04-26 13:37 | NUR ---
Initial Discharge Plan: Pt was discharged to [facility] ([facility]) located at [address] [place] [address]; ([phone]). Pt was transported via [facility] (Trip #[id number]) at 12PM. Pts brother, Santo Reardon ([phone]), was notified of this discharge. Upon discharge, the pt appeared to be in a dysphoric mood and presented with a distressed affect. Pt denied both suicidal and homicidal ideation as well as auditory and visual hallucinations. Pt will be under the care of her psychiatrist, Dr. Christelle Syed, located at [address] [place] [address]; and her oil well fishing tool operator, Dr. Cholo Foss, located at [address], [address] [place] [address]; . Addendum: 04/26/18 at 1337 by DAVID DOWD DISCHARGE NOTE: Pt was discharged to [facility] ([facility]) located at [address] [place] [address]; ([phone]). Pt was transported via [facility] (Trip #[id number]) at 12PM. Pts brother, Santo Reardon ([phone]), was notified of this discharge. Upon discharge, the pt appeared to be in a dysphoric mood and presented with a distressed affect. Pt denied both suicidal and homicidal ideation as well as auditory and visual hallucinations. Pt will be under the care of her psychiatrist, Dr. Christelle Syed, [place] at [address] [place] [address]; and her oil well fishing tool operator, Dr. Cholo Foss, located at [address], [address] [place] [address]; .
[2018-05-10] MEDS ORDERED: APIX5TAB PO (13:52)
== END 2018-04-26 12:45 | DRG 885 ==
LOC: ER 17:42 → GPS 20:11
PROVIDERS: ADMIT Psychiatry & Neurology Psychiatry; ATTEND Psychiatry & Neurology Psychiatry
DX: F39 Unspecified mood [affective] disorder (principal); F02.81 Dementia in other diseases classified elsewhere, unspecified severity, with behavioral disturbance; F29 Unspecified psychosis not due to a substance or known physiological condition; E78.5 Hyperlipidemia, unspecified; G30.9 Alzheimer's disease, unspecified; K21.9 Gastro-esophageal reflux disease without esophagitis; E03.9 Hypothyroidism, unspecified; F32.9 Major depressive disorder, single episode, unspecified; F41.9 Anxiety disorder, unspecified; I10 Essential (primary) hypertension; I25.10 Atherosclerotic heart disease of native coronary artery without angina pectoris; R47.02 Dysphasia; Z79.82 Long term (current) use of aspirin
CPT/HCPCS: 36415; 71045-TC; 80048-TC; 80076-TC; 80164-TC; 80305; 81000-TC; 84484-TC; 85025-TC; 85730-TC; 87081-TC; 92611-TC; G0480; J2060

== ENCOUNTER 2018-05-07 17:35 | Inpatient (IN) | payer MEDICARE, MEDICAID ==
[~2018-05-07] VITALS: Ht 165.1 cm; Wt 71.7 kg
[2018-05-07 18:56] LABS: BASOPHILS # (AUTO) 0.1 /CMM (0.0-0.2); BASOPHILS % (AUTO) 0.8 % (0.0-2.0); EOSINOPHILS % (AUTO) 3.4 % (0.0-6.0); HEMATOCRIT 39 % (33-45); HEMOGLOBIN 12.9 g/dL (11.5-14.8); LYMPHOCYTES # (AUTO) 2.1 /CMM (0.8-4.8); LYMPHOCYTES % (AUTO) 30.1 % (20.0-44.0); MEAN CORPUSCULAR HGB CONC 33 g/dl (31.0-36.0); MEAN CORPUSCULAR VOLUME 100 fL (82-100); MONOCYTES # (AUTO) 0.6 /CMM (0.1-1.30); NEUTROPHILS % (AUTO) 56.7 % (43.0-81.0); PLATELET COUNT (AUTO) 260 /CMM (150-450); WHITE BLOOD COUNT (AUTO) 7.1 K/uL (4.3-11.0)
[2018-05-07 19:05] LABS: CALCIUM, SERUM 9.7 mg/dL (8.5-10.1); CREATININE 0.8 mg/dL (0.6-1.3); POTASSIUM 3.6 mmol/L (3.5-5.1)
[2018-05-07 19:11] LABS: ALBUMIN 3.4 g/dL (3.4-5.0); BILIRUBIN,DIRECT 0.1 mg/dL (0.0-0.2); BILIRUBIN,TOTAL 0.2 mg/dL (0.2-1.0); TOTAL PROTEIN, SERUM 7.5 g/dL (6.4-8.2)
--- NOTE | 2018-05-07 19:20 | NUR ---
BIB PA FROM SNF C/O BILATERAL CALF VEIN THROMBOSIS. NOTED BILATERAL LOWER EXTERMITY PAIN AND SWELLING. PT DENIES SOB, CHEST PAIN. PT AAOX3. RESPIRATIONS EVEN AND UNLABORED. SKIN INTACT. NO ACUTE DISTRESS NOTED AT THIS TIME. PLACED IN GOWN AND ON CONTINUOUS PHONOGRAPH CARTRIDGE ASSEMBLER, WILL CONTINUE TO MONITOR
--- NOTE | 2018-05-07 19:21 | NUR ---
CALLED FOR BED
[2018-05-07] MEDS ORDERED: ENOXAPARIN SODIUM 80 MG/0.8 ML DISP.SYRIN SQ ONE (19:24)
[2018-05-07 19:29] LABS: APPEARANCE,URINE Clear (CLEAR); BILIRUBIN,URINE Negative (NEGATIVE); BLOOD, URINE Trace-lysed Ery/uL (NEGATIVE); COLOR,URINE Light yellow (YELLOW); KETONES,URINE Negative (NEGATIVE); LEUKOCYTE ESTERASE ,URINE Negative (NEGATIVE); NITRITE, URINE Negative (NEGATIVE); PH,URINE 7.5 (5.0-8.0); PROTEIN,URINE Negative (NEGATIVE); UGLUCOSE Negative (NEGATIVE); UROBILINOGEN,URINE 0.2 EU/dL (0.2)
[2018-05-07] MEDS ORDERED: ENOXAPARIN SODIUM 60 MG/0.6 ML DISP.SYRIN SQ ONE (19:30)
--- NOTE | 2018-05-07 19:52 | NUR ---
TELE BED 118-2
[2018-05-07 20:01] LABS: BACTERIA,URINE None seen /HPF (None Seen); RBC,URINE 0-2 /HPF (0-2); SQUAMOUS EPITHELIAL CELL,UR Few /HPF (None Seen); WBC,URINE 0-2 /HPF (0-3)
--- NOTE | 2018-05-07 20:19 | NUR ---
PT HYPERTENSIVE, ER PA AWARE
--- NOTE | 2018-05-07 20:21 | NUR ---
GAVE REPORT TO STEVEN JOHNSTON FOR YONY
[2018-05-07] MEDS ORDERED: METOPROLOL TARTRATE 25 MG TABLET ONE (20:30)
[2018-05-07] MEDS ORDERED: NA PHOS,M-B/NA PHOS,DI-BA 1 EA ENEMA RC PRN (20:30)
[2018-05-07] MEDS ORDERED: ACETAMINOPHEN 325 MG TABLET PO PRN ×2 (20:30)
[2018-05-07] MEDS ORDERED: MAGNESIUM HYDROXIDE 30 ML UDC PO PRN ×2 (20:30)
[2018-05-07] MEDS ORDERED: METOPROLOL SUCCINATE 25 MG TAB.SR.24H PO SCH (20:30)
[2018-05-07] MEDS ORDERED: ONDANSETRON HCL/PF 4 MG/2 ML VIAL IVP PRN (20:30)
[2018-05-07] MEDS ORDERED: ZOLPIDEM TARTRATE 5 MG TABLET PO PRN (20:30)
[2018-05-07] MEDS ORDERED: HYDROCODONE/APAP 5/325MG 1 EACH TABLET PO PRN (20:30)
[2018-05-07] MEDS ORDERED: MAG HYDROX/AL HYDROX/SIMETH 30 ML UDC PO PRN ×2 (20:30)
[2018-05-07] MEDS ORDERED: hydrALAZINE HCL 25 MG TABLET PO PRN (20:30)
[2018-05-07] MEDS ORDERED: Z GUARD REMEDY 2 OZ OINT TP PRN (20:30)
[2018-05-07 20:45] VITALS: BP 180/73
--- NOTE | 2018-05-07 20:55 | NUR ---
PT TRANSFERRED TO [facility] BED 118-2 PER ACLS PROTOCOL
--- NOTE | 2018-05-07 21:00 | NUR ---
director of distance learning admission notes, Received 67 to female admitted from er department lavon dahl in company of 2 nurses in stable condition, a/o x3 able to verbalized needs, on room air with vs 97.6, 60, 20, 98%, 180/73, metoprolol given at ER for elevated blood pressure, will check again later, admitting under dr Bell with dx of DVT, medical h/o hld, hypothyroidism, dementia, muscle weakness, SR/SB in tele monitor sr/sb on tele monitor high 50s/low 60s, breathing even and unlabored, no sob/acute distress noted, afebrile at this time, skin intact, noted with bilateral lower extremities swelling an redness, c/o pain with movement, bed bath given upon admissions, skin dry warm and intact, bed locked and low position, call light w/i reach, will continue to monitor closely.
[2018-05-07] MEDS: CEFUROXIME AXETIL 250 MG TABLET PO SCH (21:33)
[2018-05-07] MEDS: ATORVASTATIN 40 MG TABLET PO SCH (21:33)
--- NOTE | 2018-05-07 22:35 | NUR ---
RN NOTES, DR REECE AT BEDSIDE TO ASSESSED PATIENT, WITH NEW ORDER FOR CT PULMONARY ANGIOGRAM ROUTINE TO R/O PULMONARY EMBOLISM, WILL BE NPO AFTER MIDNIGHT, ALSO HE STATED THAT PATIENT WILL CONTINUE WITH LOVENOX ROUTINE, LOVENOX ADMINISTERED IN ER, NEXT DOSE WILL BE ADMINISTERED IN AM PER MD.
[2018-05-08] VITALS: BP 113/52
[2018-05-08 04:00] VITALS: BP 142/65
--- NOTE | 2018-05-08 06:43 | NUR ---
MS RN CLOSING NOTES, PATIENT SLEEPING AT THIS TIME, BREATHING EVEN AND UNLABORED, NO SOB/ACUTE DISTRESS NOTED, NO C/O PAIN AT THIS TIME, IV LINE LEFT AC 20G S/L IN PLACE, NPO SINCE MIDNIGHT, WILL HAVE CT PULMONARY ANGIOGRAM THIS AM, ALL NEEDS PROVIDED, NO SIGNIFICANT CHANGE IN CONDITION DURING THE NIGHT, WILL ENDORSE CONTINUITY OF CARE TO ONCOMING NURSE.
--- NOTE | 2018-05-08 07:00 | NUR ---
SOCK BOARDER OPENING NOTES RECEIVED PT LYING ON BED.ALERT/ORIENTED X2 WITH CONFUSED.ON TELE HR IS 70'S WITH SR.ON ROOM AIR,TOLERATING WELL. NO SOB AND ACUTE DISTRESS NOTED.CAN AMBULATE WELL TO RESTROOM WITH 1PERSON ASSISTANCE.IV LINE IS ON LEFT AC G20,SITE IS CLEAN,DRY AND INTACT.NO INFILTRATION NOTED.ON NPO FOR PULMONARY ANGIOGRAM.SAFETY IS MAINTAINED AT ALL TIMES.CALL LIGHT IS WITHIN REACH.WILL CONTINUE TO MONITOR THE PT CLOSELY.
[2018-05-08] MEDS: LEVOTHYROXINE SODIUM 137 MCG TABLET PO SCH (07:30)
[2018-05-08 07:32] LABS: BASOPHILS # (AUTO) 0.1 /CMM (0.0-0.2); BASOPHILS % (AUTO) 1.2 % (0.0-2.0); HEMATOCRIT 34 % (33-45); HEMOGLOBIN 11.4 g/dL (11.5-14.8); LYMPHOCYTES # (AUTO) 1.4 /CMM (0.8-4.8); LYMPHOCYTES % (AUTO) 21.4 % (20.0-44.0); MEAN CORPUSCULAR HGB CONC 34 g/dl (31.0-36.0); MEAN CORPUSCULAR VOLUME 99 fL (82-100); MONOCYTES # (AUTO) 0.6 /CMM (0.1-1.30); MONOCYTES % (AUTO) 9.2 % (2.0-12.0); NEUTROPHILS # (AUTO) 4.2 /CMM (1.8-8.9); NEUTROPHILS % (AUTO) 65.2 % (43.0-81.0); PLATELET COUNT (AUTO) 236 /CMM (150-450); RED BLOOD CELL COUNT(AUTO) 3.42 MIL/uL (4.0-5.2); WHITE BLOOD COUNT (AUTO) 6.5 K/uL (4.3-11.0)
[2018-05-08 07:39] LABS: CALCIUM, SERUM 9.1 mg/dL (8.5-10.1); CREATININE 0.7 mg/dL (0.6-1.3); MAGNESIUM 1.9 mg/dL (1.8-2.4); PHOSPHORUS 3.6 mg/dL (2.5-4.9); POTASSIUM 3.9 mmol/L (3.5-5.1)
[2018-05-08 08:00] VITALS: BP 181/56
[2018-05-08] MEDS: MULTIVIT W/MINERALS 1 TAB TABLET PO SCH (09:14)
[2018-05-08] MEDS: LACTOBACILLUS RHAMNOSUS GG 1 EACH CAP.SPRINK PO SCH ×2 (09:15→16:52)
[2018-05-08] MEDS: METOPROLOL TARTRATE 25 MG TABLET PO SCH ×2 (09:15→16:53)
[2018-05-08] MEDS: ESCITALOPRAM OXALATE (10 MG) 10 MG TABLET PO SCH (09:15)
[2018-05-08] MEDS: HYDROCHLOROTHIAZIDE 25 MG TABLET PO SCH (09:16)
[2018-05-08] MEDS: AMLODIPINE BESYLATE 5 MG TABLET PO SCH (09:17)
[2018-05-08] MEDS: CEFUROXIME AXETIL 250 MG TABLET PO SCH ×2 (09:20→21:31)
[2018-05-08] MEDS: ENOXAPARIN SODIUM 80 MG/0.8 ML DISP.SYRIN SQ SCH ×2 (09:21→21:28)
[2018-05-08] MEDS ORDERED: IV NS 0.9% 250 ML IV ONE (09:34)
[2018-05-08] MEDS ORDERED: IOHEXOL-350 100 ML VIAL IV ONE (09:34)
[2018-05-08] MEDS ORDERED: CT SWABBABLE VALVE TRANS SET 1 EA INFUS.SET MC ONE (09:35)
--- NOTE | 2018-05-08 10:00 | NUR ---
PATIENT CARE ASSOCIATE NOTES PT CAME BACK FROM CT ANGIOGRAM WITH IV INFILTRATED ON LEFT AC.THEY SAID"WHILE DOING IV CONTRAST,AT THE END THE PT BEND THE LEFT ARM SUDDENLY AND GOT INFILTRATED".PT DENIES PAIN,REMOVED THE IV AND PLACED COLD COMPRESS ON IT.ELEVATE THE LEFT R,WILL CONTINUE TO MONITOR THE PT ARM.
[2018-05-08 12:00] VITALS: BP 150/45
[2018-05-08 16:00] VITALS: BP 105/48
--- NOTE | 2018-05-08 16:56 | NUR ---
MS RN NOTES INFILTRATION ON LEFT HAND IS SUBSIDING.
--- NOTE | 2018-05-08 18:50 | NUR ---
MS RN CLOSING NOTES PT IS LYING ON BED.ALERT/ORIENTED X1 WITH CONFUSED AND FALL RISK.CAN AMBULATE WITH MODERATE SUPERVISION.ALL THE PM MEDS ARE GIVEN.VITAL SIGNS CHECKED AND RECORDED.NOTED WITH NEGATIVE PULMONARY EMBOLISM IN CTA CHEST. IS PLANNING TO DO CT HEAD WO CONTRAST.IV LINE IS CHANGED TO LEFT FA G22,SITE IS CLEAN,DRY AND INTACT.NO INFILTRATION NOTED.INFILTRATION ON LEFT HAND LOOKS BETTER AND SUBSIDING.WILL ENDORSE TO SAND CUTTING MACHINE OPERATOR RN FOR YONY.
--- NOTE | 2018-05-08 18:55 | NUR ---
MS RN NOTES PT PICKED UP TO GET CT HEAD WO CONTRAST.
--- NOTE | 2018-05-08 19:10 | NUR ---
RN M/S NOTE PATIENT IS AOX1-2, SPEECH CLEAR, ABLE TO MAKE NEEDS KNOWN, DENIES ANY PAIN, NO S/SX OF CARDIAC OR RESPIRATORY DISTRESS, ARRIVED BACK FROM HEAD CT WITHOUT CONTRAST, SKIN IS CLEAN AND DRY, LFA #22G PATENT FLUSHING WELL, SL, SKIN IS CLEAN AND DRY, SAFETY MAINTAINED AT ALL TIMES, WILL CONTINUE TO MONITOR FOR ANY CHANGES IN CONDITION.
[2018-05-08 20:00] VITALS: BP 130/79
[2018-05-08] MEDS: ATORVASTATIN 40 MG TABLET PO SCH (21:28)
[2018-05-09 04:00] VITALS: BP 140/51
--- NOTE | 2018-05-09 07:00 | NUR ---
MS RN OPENING NOTES RECEIVED PT IN BED, A/OX1. PT SPEECH DISORGANIZED. PT IS ON RA O2 SAT WNL. NO S/SX OF DISTRESS. LUNG SOUNDS CLEAR. HR RYAN 59. PT C/O OF LOWER BACK PAIN 12/13. ASSISTED PT TO BR, GAIT UNSTEADY UPON RISING. SKIN INTACT. PT HAD 1X CONSTIPATED BM. LFA #22G IV PATENT/FLUSHED, DRESSING REINFORCED. BS ACTIVE. BED ALARM ON, CALL LIGHT IN REACH. WILL CONT TO MONITOR.
[2018-05-09 07:09] LABS: BASOPHILS # (AUTO) 0.1 /CMM (0.0-0.2); EOSINOPHILS % (AUTO) 2.4 % (0.0-6.0); HEMATOCRIT 35 % (33-45); HEMOGLOBIN 11.8 g/dL (11.5-14.8); LYMPHOCYTES # (AUTO) 1.9 /CMM (0.8-4.8); LYMPHOCYTES % (AUTO) 28.2 % (20.0-44.0); MEAN CORPUSCULAR HGB CONC 33 g/dl (31.0-36.0); MEAN CORPUSCULAR VOLUME 98 fL (82-100); MONOCYTES # (AUTO) 0.7 /CMM (0.1-1.30); MONOCYTES % (AUTO) 10.4 % (2.0-12.0); NEUTROPHILS # (AUTO) 3.9 /CMM (1.8-8.9); PLATELET COUNT (AUTO) 238 /CMM (150-450); WHITE BLOOD COUNT (AUTO) 6.7 K/uL (4.3-11.0)
[2018-05-09 07:24] LABS: CREATININE 0.7 mg/dL (0.6-1.3); POTASSIUM 3.8 mmol/L (3.5-5.1)
[2018-05-09] MEDS: LEVOTHYROXINE SODIUM 137 MCG TABLET PO SCH (07:51)
[2018-05-09 08:00] VITALS: BP 124/49
[2018-05-09] MEDS: METOPROLOL TARTRATE 25 MG TABLET PO SCH ×3 (08:02→18:11)
[2018-05-09] MEDS: CEFUROXIME AXETIL 250 MG TABLET PO SCH (09:34)
[2018-05-09] MEDS: HYDROCHLOROTHIAZIDE 25 MG TABLET PO SCH (09:40)
[2018-05-09] MEDS: AMLODIPINE BESYLATE 5 MG TABLET PO SCH (09:42)
[2018-05-09] MEDS: ESCITALOPRAM OXALATE (10 MG) 10 MG TABLET PO SCH (09:42)
[2018-05-09] MEDS: MULTIVIT W/MINERALS 1 TAB TABLET PO SCH (09:42)
[2018-05-09] MEDS: LACTOBACILLUS RHAMNOSUS GG 1 EACH CAP.SPRINK PO SCH ×2 (09:42→16:10)
[2018-05-09] MEDS: ENOXAPARIN SODIUM 80 MG/0.8 ML DISP.SYRIN SQ SCH ×2 (09:44→21:03)
[2018-05-09] MEDS: ASPIRIN EC 325 MG TABLET.DR PO SCH (15:45)
[2018-05-09 16:00] VITALS: BP 160/71
--- NOTE | 2018-05-09 18:33 | NUR ---
MS RN CLOSING NOTE PATIENT IN BED. ALERT ORIENTED X1. ON ROOM AIR, TOLERATING WELL. IN NO APPARENT DISTRESS OR DISCOMFORT AT THIS TIME. RESPIRATIONS EVEN AND UNLABORED. PAIN IN LOWER BACK MEDICATED. PATIENT IS ABLE TO COMMUNICATE NEEDS. LEFT FOREARM #22G IVC, SL, PATENT AND INTACT. PATIENT KEPT CLEAN AND COMFORTABLE, ALL NEEDS ATTENDED, ORDERS RENDERED. SAFETY MEASURES IN PLACE, BED IN LOW LOCKED POSITION SIDE RAILS UP X2, CALL LIGHT WITHIN EASY REACH. WILL ENDORSE TO PM NURSE FOR YONY.
--- NOTE | 2018-05-09 19:29 | NUR ---
MS RN NOTE: RECEIVED PT ON BED ALERT AND ORIENTED TO HERSELF, VERBALLY RESPONSIVE. NO APPARENT DISTRESS NOTED. NO COMPLAINTS OF PAIN OR DISCOMFORT AT THIS TIME. ON ROOM AIR, SATURATING WELL. LEFT HAND #22 INTACT AND PATENT, FLUSHING WELL. KEPT CLEAN, DRY AND COMFORTABLE. SIDE RAILS UP X3. BED ALARM ON. BED LOCKED AND IN LOWEST POSITION. CALL LIGHT PLACED WITHIN REACH. WILL CONTINUE TO MONITOR PT.
[2018-05-09 20:00] VITALS: BP 153/59
[2018-05-09] MEDS: ATORVASTATIN 40 MG TABLET PO SCH (21:03)
[2018-05-10 04:00] VITALS: BP 150/62
--- NOTE | 2018-05-10 06:42 | NUR ---
MS RN NOTE: NO CHANGES NOTED THROUGHOUT THE SHIFT. NO APPARENT DISTRESS NOTED. NO COMPLAINTS OF PAIN OR DISCOMFORT AT THIS TIME. NO SOB NOTED. KEPT CLEAN, DRY AND COMFORTABLE. SAFETY AND FALL PRECAUTIONS OBSERVED AND MAINTAINED. WILL ENDORSE TO DAY SHIFT RN FOR CONTINUITY OF CARE.
--- NOTE | 2018-05-10 07:00 | NUR ---
MS RN OPENING NOTES RECEIVED PT IN BED, A/OX1. PT SPEECH DISORGANIZED. PT IS ON RA O2 SAT WNL. NO S/SX OF DISTRESS. LUNG SOUNDS CLEAR. HR RYAN 59. PT C/O OF LOWER BACK PAIN 12/13. ASSISTED PT TO BR, GAIT UNSTEADY UPON RISING. SKIN INTACT. LFA #22G IV PATENT/FLUSHED, DRESSING REINFORCED. BS ACTIVE. BED ALARM ON, CALL LIGHT IN REACH. WILL CONT TO MONITOR.
[2018-05-10] MEDS: LEVOTHYROXINE SODIUM 137 MCG TABLET PO SCH (07:55)
[2018-05-10] MEDS: ENOXAPARIN SODIUM 80 MG/0.8 ML DISP.SYRIN SQ SCH (08:57)
[2018-05-10] MEDS: ESCITALOPRAM OXALATE (10 MG) 10 MG TABLET PO SCH (08:58)
[2018-05-10] MEDS: ASPIRIN EC 325 MG TABLET.DR PO SCH (08:58)
[2018-05-10] MEDS: HYDROCHLOROTHIAZIDE 25 MG TABLET PO SCH (08:58)
[2018-05-10] MEDS: AMLODIPINE BESYLATE 5 MG TABLET PO SCH (08:58)
[2018-05-10] MEDS: METOPROLOL TARTRATE 25 MG TABLET PO SCH ×2 (08:59→16:12)
[2018-05-10] MEDS: LACTOBACILLUS RHAMNOSUS GG 1 EACH CAP.SPRINK PO SCH ×2 (08:59→16:07)
[2018-05-10] MEDS: MULTIVIT W/MINERALS 1 TAB TABLET PO SCH (08:59)
[2018-05-10] MEDS ORDERED: APIX5TAB PO (13:52)
[2018-05-10] MEDS ORDERED: DIVALPROEX SODIUM 125 MG CAP.SPRINK PO SCH ×2 (14:30→21:00)
[2018-05-10 16:00] VITALS: BP 128/46
[2018-05-10 16:12] VITALS: BP 128/46
[2018-05-10] MEDS ORDERED: RIVAROXABAN 15 MG TABLET PO SCH (17:00)
[2018-05-10] MEDS ORDERED: APIXABAN 5 MG TABLET PO SCH (17:00)
--- NOTE | 2018-05-10 18:30 | NUR ---
MS RN NOTES REPORT GIVEN TO VICKIE MELGAR AT [facility]. IV REMOVED. BELONGINGS WITH PATIENT. DISCHARGE PACKET INCLUDED.
[2018-05-10] MEDS ORDERED: ALLA266C2 TP (19:00)
[2018-05-10] MEDS ORDERED: HYDR-4384 PO (19:00)
[2018-05-10] MEDS ORDERED: ONDA4TAB5 PO (19:00)
[2018-05-10] MEDS ORDERED: ASPI-869 PO (19:00)
[2018-05-10] MEDS ORDERED: ZOLP5TAB8 PO (19:00)
[2018-05-10] MEDS ORDERED: LACT1CAP72 PO (19:00)
[2018-05-17] MEDS ORDERED: APIXABAN 5 MG TABLET PO SCH (17:00)
[2018-05-17] MEDS ORDERED: RIVAROXABAN 10 MG TABLET PO SCH (17:00)
== END 2018-05-10 19:06 | DRG 281 ==
LOC: ER 17:37 → TELE1 19:51 → MEDSG1 05-08 11:48
PROVIDERS: ADMIT Family Medicine; ATTEND Nurse Practitioner Acute Care
DX: I82.493 Acute embolism and thrombosis of other specified deep vein of lower extremity, bilateral (principal); I21.A1 Myocardial infarction type 2; I50.32 Chronic diastolic (congestive) heart failure; R47.01 Aphasia; K21.9 Gastro-esophageal reflux disease without esophagitis; E78.5 Hyperlipidemia, unspecified; E03.9 Hypothyroidism, unspecified; I25.10 Atherosclerotic heart disease of native coronary artery without angina pectoris; I10 Essential (primary) hypertension; F02.80 Dementia in other diseases classified elsewhere, unspecified severity, without behavioral disturbance, psychotic disturbance, mood disturbance, and anxiety; G30.9 Alzheimer's disease, unspecified; I11.0 Hypertensive heart disease with heart failure; J43.9 Emphysema, unspecified; Z79.82 Long term (current) use of aspirin; Z86.73 Personal history of transient ischemic attack (TIA), and cerebral infarction without residual deficits; F39 Unspecified mood [affective] disorder; F01.50 Vascular dementia, unspecified severity, without behavioral disturbance, psychotic disturbance, mood disturbance, and anxiety; Z79.890 Hormone replacement therapy
CPT/HCPCS: 36415; 70450-TC; 71045-TC; 80048-TC; 80061-TC; 80076-TC; 81000-TC; 83735-TC; 84100-TC; 84484-TC; 85025-TC; 85652-TC; 85730-TC; 87081-TC; 87086-TC; 93307-TC; 93880-TC; A6402; G0378; J1650; J7050; Q9967

== ENCOUNTER 2018-05-10 18:30 | Inpatient (IN) | payer MEDICARE, MEDICAID ==
[~2018-05-10] VITALS: Ht 172.7 cm; Wt 63.5 kg
[~2018-05-10 18:30] MED LIST changes: +APIX5TAB PO
[2018-05-10] MEDS ORDERED: ZOLP5TAB8 PO (19:00)
[2018-05-10] MEDS ORDERED: HYDR-4384 PO (19:00)
[2018-05-10] MEDS ORDERED: ASPI-869 PO (19:00)
[2018-05-10] MEDS ORDERED: ONDA4TAB5 PO (19:00)
[2018-05-10] MEDS ORDERED: LACT1CAP72 PO (19:00)
[2018-05-10] MEDS ORDERED: ALLA266C2 TP (19:00)
--- NOTE | 2018-05-10 19:00 | NUR ---
ADMITTED FROM [facility] VIA WHEELCHAIR, PATIENT NEWLY DISCHARGED FROM [facility] TODAY. PATIENT ADMITTED ON 5150 FOR GD. RECEIVED AWAKE,. UPON FACE TO FACE, SHE WAS INITIALLY IRRITABLE, DEFENSIVE, CONFUSED, CONTINUOUSLY RAMBLING WITH WORD SALAD, HAVING TROUBLE FINISHING A SENTENCE. HALLUCINATING, RESISTANT TO CARE. ALERT, ORIENTED X2-3, PATIENT NOTED SINGING ON HER OWN. PATIENT SHOWS NO S/S OF ANY PAIN. NO APPARENT DISTRESS NOTED. ABLE TO MAKE NEEDS KNOWN, INTERACTIVE WHEN ENGAGED. SKIN WARM DRY AND INTACT. BELONGINGS WERE INVENTORIED AND CHECKED FOR CONTRABAND. ENVIRONMENTAL CHECK DONE. DIRECTOR OF CULTURE Carri VICTORIA NOTIFIED FOR MED RECONCILIATION. MRSA SCREEN DONE. BED LOCKED AND PLACED ON LOWEST POSITION. WILL CONTINUE TO MONITOR Q 15 MINS. TO MAINTAIN SAFETY.
[2018-05-10 20:00] VITALS: BP 140/59
[2018-05-10] MEDS ORDERED: ACETAMINOPHEN 325 MG TABLET PO PRN ×2 (20:30→22:00)
[2018-05-10] MEDS ORDERED: hydrALAZINE HCL 25 MG TABLET PO PRN (20:30)
[2018-05-10] MEDS ORDERED: MAG HYDROX/AL HYDROX/SIMETH 30 ML UDC PO PRN (22:00)
[2018-05-10] MEDS ORDERED: MAGNESIUM HYDROXIDE 30 ML UDC PO PRN (22:00)
[2018-05-10] MEDS ORDERED: TEMAZEPAM 7.5 MG CAPSULE PO PRN (22:00)
[2018-05-11] MEDS: ATORVASTATIN 40 MG TABLET PO SCH ×2 (00:02→21:57)
[2018-05-11 07:18] LABS: CHOLESTEROL 167 mg/dL (<200); HDL CHOLESTEROL 48 mg/dL (40-60); LDL 105 mg/dL (0-99); TRIGLYCERIDES 83 mg/dL (30-150)
[2018-05-11 07:22] LABS: BASOPHILS # (AUTO) 0.1 /CMM (0.0-0.2); BASOPHILS % (AUTO) 0.9 % (0.0-2.0); BILIRUBIN,TOTAL 0.3 mg/dL (0.2-1.0); CREATININE 0.8 mg/dL (0.6-1.3); EOSINOPHILS % (AUTO) 3.3 % (0.0-6.0); HEMATOCRIT 37 % (33-45); HEMOGLOBIN 12.4 g/dL (11.5-14.8); LYMPHOCYTES # (AUTO) 1.8 /CMM (0.8-4.8); LYMPHOCYTES % (AUTO) 27.9 % (20.0-44.0); MEAN CORPUSCULAR HGB CONC 33 g/dl (31.0-36.0); MEAN CORPUSCULAR VOLUME 98 fL (82-100); MONOCYTES # (AUTO) 0.7 /CMM (0.1-1.30); MONOCYTES % (AUTO) 10.3 % (2.0-12.0); NEUTROPHILS # (AUTO) 3.8 /CMM (1.8-8.9); NEUTROPHILS % (AUTO) 57.6 % (43.0-81.0); PLATELET COUNT (AUTO) 235 /CMM (150-450); POTASSIUM 4.1 mmol/L (3.5-5.1); TOTAL PROTEIN, SERUM 6.7 g/dL (6.4-8.2); WHITE BLOOD COUNT (AUTO) 6.5 K/uL (4.3-11.0)
[2018-05-11 08:00] VITALS: BP 119/76
[2018-05-11] MEDS: MULTIVITAMINS,THERAGRAN 1 UDTAB TABLET PO SCH (08:44)
[2018-05-11] MEDS: LEVOTHYROXINE SODIUM 137 MCG TABLET PO SCH (08:44)
[2018-05-11] MEDS: LACTOBACILLUS RHAMNOSUS GG 1 EACH CAP.SPRINK PO SCH ×2 (08:44→16:22)
[2018-05-11] MEDS: METOPROLOL TARTRATE 25 MG TABLET PO SCH ×2 (08:45→16:22)
[2018-05-11] MEDS: HYDROCHLOROTHIAZIDE 25 MG TABLET PO SCH (08:45)
[2018-05-11] MEDS: AMLODIPINE BESYLATE 5 MG TABLET PO SCH (08:46)
[2018-05-11] MEDS ORDERED: APIXABAN 5 MG TABLET PO SCH (09:00)
[2018-05-11] MEDS ORDERED: ASPIRIN EC 325 MG TABLET.DR PO SCH (09:00)
--- NOTE | 2018-05-11 09:27 | NUR ---
Psychosocial Note: I, Marlen Richardson MSW, attest to the patients previous psychosocial information dated on 04/19/18. Update On Events leading to Admission and Discharge Plan: Pt has returned to the geropsychiatric unit of the hospital within two weeks of her previous discharge date (04/26/18) from the unit to [facility] ([facility] Per hold, the pt came from the med-surgical unit of [facility]. The pt presented as being irritable and defensive. The pt continued to ramble on with word salad speech and was unable to complete her sentences. The nursing staff reported that the pt has been having hallucinations and is resistant to care. The current plan is to adjust the pts medications and stabilize her before discharging the pt back to [facility]. Per pt, she was unable to ascertain where she wanted to be discharged to due to her confusion and irritation. She stated, I live in [place] and I do not need help somewhere else. The pt appeared to be oriented x2 (time and self). The pt appeared to be in a dysphoric mood and presented as irritable and agitated. Pt appeared to be ambulatory, disheveled and inappropriately dressed. SW will work with the pt, the pts family and the MD regarding appropriate discharge planning. SW will form a safe and proper discharge.
--- NOTE | 2018-05-11 10:22 | NUR ---
GPS/RN-NOTES ELIQUIS 10 MG P.O NOT ADMINISTER AT THIS TIME DUE TO APOLLO KANG ( PHARMACIES) SHE NEEDS TO VERIFY THE ORDER TO THE MD.
[2018-05-11] MEDS: APIXABAN 5 MG TABLET PO SCH ×2 (11:12→19:43)
[2018-05-11 16:00] VITALS: BP 104/54
[2018-05-11 20:00] VITALS: BP 111/58
[2018-05-11] MEDS: QUETIAPINE FUMARATE 25 MG TABLET PO SCH (21:57)
[2018-05-11] MEDS: ESCITALOPRAM OXALATE (10 MG) 10 MG TABLET PO SCH (21:57)
--- NOTE | 2018-05-11 23:27 | NUR ---
RN NOTES: PATIENT WAS LYING COMFORTABLY IN BED, A/0X1 WITH PERIODS OF CONFUSION,SHE IS TALKING AND STARING BLANKLY ON THE CEILING,ORIENTED TO UNIT AND STAFF. -DUE MEDS GIVEN AT 1999 AND 2199, EXPLAINED, COOPERATIVE, NO RESISTANCE. -0 ASLEEP IN THE NIGHT.BED LOW AND LOCKED, FALL AND SAFETY PRECAUTION OBSERVED.
[2018-05-12 08:00] VITALS: BP 133/59
[2018-05-12] MEDS: LACTOBACILLUS RHAMNOSUS GG 1 EACH CAP.SPRINK PO SCH ×2 (08:20→16:04)
[2018-05-12] MEDS: ASPIRIN EC 81 MG TABLET.DR PO SCH (08:20)
[2018-05-12] MEDS: MULTIVITAMINS,THERAGRAN 1 UDTAB TABLET PO SCH (08:20)
[2018-05-12] MEDS: LEVOTHYROXINE SODIUM 137 MCG TABLET PO SCH (08:21)
[2018-05-12] MEDS: APIXABAN 5 MG TABLET PO SCH ×2 (08:22→16:04)
[2018-05-12] MEDS: AMLODIPINE BESYLATE 5 MG TABLET PO SCH (08:23)
[2018-05-12] MEDS: HYDROCHLOROTHIAZIDE 25 MG TABLET PO SCH (08:23)
[2018-05-12] MEDS: METOPROLOL TARTRATE 25 MG TABLET PO SCH ×2 (08:23→16:07)
[2018-05-12 16:00] VITALS: BP 139/46
--- NOTE | 2018-05-12 19:32 | NUR ---
GPS RN NOTES RECEIVED ON BED A/O X1-2,CALM,ABLE TO VERBALIZED NEEDS,RE DIRECTABLE,WITH SITTER AT BEDSIDE FOR ASSISTANCE AND SAFETY.WILL CONTINUE TO MONITOR BEHAVIOR AND MANAGE ACCORDINGLY.
[2018-05-12 20:28] VITALS: BP 126/46
[2018-05-12 20:41] VITALS: BP 126/46
[2018-05-12] MEDS: ATORVASTATIN 40 MG TABLET PO SCH (21:16)
[2018-05-12] MEDS: ESCITALOPRAM OXALATE (10 MG) 10 MG TABLET PO SCH (21:17)
[2018-05-12] MEDS: QUETIAPINE FUMARATE 25 MG TABLET PO SCH (21:17)
[2018-05-13 08:00] VITALS: BP 138/56
[2018-05-13] MEDS: LEVOTHYROXINE SODIUM 137 MCG TABLET PO SCH (08:37)
[2018-05-13] MEDS: ASPIRIN EC 81 MG TABLET.DR PO SCH (09:16)
[2018-05-13] MEDS: MULTIVITAMINS,THERAGRAN 1 UDTAB TABLET PO SCH (09:18)
[2018-05-13] MEDS: APIXABAN 5 MG TABLET PO SCH ×2 (09:18→16:41)
[2018-05-13] MEDS: METOPROLOL TARTRATE 25 MG TABLET PO SCH ×2 (09:18→16:40)
[2018-05-13] MEDS: LACTOBACILLUS RHAMNOSUS GG 1 EACH CAP.SPRINK PO SCH ×2 (09:18→16:39)
[2018-05-13 16:00] VITALS: BP 109/52
[2018-05-13 20:32] VITALS: BP 147/50
[2018-05-13] MEDS: ESCITALOPRAM OXALATE (10 MG) 10 MG TABLET PO SCH (21:25)
[2018-05-13] MEDS: ATORVASTATIN 40 MG TABLET PO SCH (21:25)
[2018-05-13 22:00] VITALS: BP 130/63
[2018-05-13] MEDS ORDERED: QUETIAPINE FUMARATE 100 MG TABLET PO SCH (22:00)
[2018-05-14 08:00] VITALS: BP 150/60
[2018-05-14] MEDS: ASPIRIN EC 81 MG TABLET.DR PO SCH ×2 (09:00→09:16)
[2018-05-14] MEDS: METOPROLOL TARTRATE 25 MG TABLET PO SCH ×2 (09:16→17:05)
[2018-05-14] MEDS: MULTIVITAMINS,THERAGRAN 1 UDTAB TABLET PO SCH (09:16)
[2018-05-14] MEDS: LEVOTHYROXINE SODIUM 137 MCG TABLET PO SCH (09:16)
[2018-05-14] MEDS: LACTOBACILLUS RHAMNOSUS GG 1 EACH CAP.SPRINK PO SCH ×2 (09:16→17:04)
[2018-05-14] MEDS: APIXABAN 5 MG TABLET PO SCH ×2 (09:23→17:06)
[2018-05-14] MEDS: LORAZEPAM 0.5 MG TABLET PO PRN ×2 (09:24→22:22)
--- NOTE | 2018-05-14 09:24 | NUR ---
RN NOTES ADMINISTERED TYLENOL 650 MG PO PRN FOR LOWER BACK PAIN, AND ATIVAN 0.5 MG PO PRN FOR ANXIETY, PER PATIENT REQUEST, CONTINUED MONITORING.
[2018-05-14 16:00] VITALS: BP 117/54
[2018-05-14 20:39] VITALS: BP 119/69
[2018-05-14] MEDS: ATORVASTATIN 40 MG TABLET PO SCH (21:39)
[2018-05-14] MEDS: ESCITALOPRAM OXALATE (10 MG) 10 MG TABLET PO SCH (21:39)
[2018-05-14] MEDS: QUETIAPINE FUMARATE 100 MG TABLET PO SCH (21:40)
[2018-05-14] MEDS ORDERED: QUETIAPINE FUMARATE 25 MG TABLET PO SCH (22:00)
--- NOTE | 2018-05-14 22:22 | NUR ---
RN NOTES Patient noted to be anxious and responding to internal stimuli, Ativan 0.5mg given as ordered
[2018-05-15 08:00] VITALS: BP 138/68
[2018-05-15] MEDS: LEVOTHYROXINE SODIUM 137 MCG TABLET PO SCH (08:11)
[2018-05-15] MEDS: QUETIAPINE FUMARATE 25 MG TABLET PO SCH (08:11)
[2018-05-15] MEDS: APIXABAN 5 MG TABLET PO SCH ×2 (08:11→16:17)
[2018-05-15] MEDS: LACTOBACILLUS RHAMNOSUS GG 1 EACH CAP.SPRINK PO SCH ×2 (08:11→16:15)
[2018-05-15] MEDS: MULTIVITAMINS,THERAGRAN 1 UDTAB TABLET PO SCH (08:11)
[2018-05-15] MEDS: ASPIRIN EC 81 MG TABLET.DR PO SCH (08:11)
[2018-05-15] MEDS: METOPROLOL TARTRATE 25 MG TABLET PO SCH ×2 (08:12→16:15)
[2018-05-15 16:00] VITALS: BP 130/64
[2018-05-15] MEDS: DIVALPROEX SODIUM 250 MG TABLET.DR PO SCH ×2 (16:15→21:50)
[2018-05-15 20:18] VITALS: BP 151/62
[2018-05-15] MEDS: QUETIAPINE FUMARATE 100 MG TABLET PO SCH (21:49)
[2018-05-15] MEDS: ATORVASTATIN 40 MG TABLET PO SCH (21:50)
[2018-05-15] MEDS: ESCITALOPRAM OXALATE (10 MG) 10 MG TABLET PO SCH (21:50)
[2018-05-16 08:00] VITALS: BP 130/60
[2018-05-16] MEDS: LEVOTHYROXINE SODIUM 137 MCG TABLET PO SCH (08:08)
[2018-05-16] MEDS: LACTOBACILLUS RHAMNOSUS GG 1 EACH CAP.SPRINK PO SCH ×2 (08:08→16:33)
[2018-05-16] MEDS: MULTIVITAMINS,THERAGRAN 1 UDTAB TABLET PO SCH (08:08)
[2018-05-16] MEDS: QUETIAPINE FUMARATE 25 MG TABLET PO SCH (08:08)
[2018-05-16] MEDS: DIVALPROEX SODIUM 250 MG TABLET.DR PO SCH ×3 (08:08→21:06)
[2018-05-16] MEDS: ASPIRIN EC 81 MG TABLET.DR PO SCH (08:08)
[2018-05-16] MEDS: APIXABAN 5 MG TABLET PO SCH ×2 (08:09→16:34)
[2018-05-16] MEDS: METOPROLOL TARTRATE 25 MG TABLET PO SCH ×2 (08:09→16:33)
--- NOTE | 2018-05-16 13:09 | NUR ---
NILE contacted Toma ([phone]) from [facility] and inquired about whether or not the pt can return to the facility. She stated that when the pt is considered to be stable, she is welcome to return.
--- NOTE | 2018-05-16 13:11 | NUR ---
NILE called the pt's brother, Santo ([phone]), and left a voicemail regarding the pts admission to the hospital and the initial discharge plan to have her return to [facility].
--- NOTE | 2018-05-16 13:11 | NUR ---
NILE contacted Toma ([phone]) from [facility] and informed her that the pt is going to be discharged on Monday and she stated that was acceptable.
[2018-05-16 16:00] VITALS: BP 142/77
[2018-05-16 19:53] VITALS: BP 144/54
[2018-05-16] MEDS: ESCITALOPRAM OXALATE (10 MG) 10 MG TABLET PO SCH (21:05)
[2018-05-16] MEDS: QUETIAPINE FUMARATE 100 MG TABLET PO SCH (21:05)
[2018-05-16] MEDS: ATORVASTATIN 40 MG TABLET PO SCH (21:06)
[2018-05-16 22:00] VITALS: BP 125/62
[2018-05-17 08:00] VITALS: BP 154/59
[2018-05-17 08:16] LABS: CREATININE 0.7 mg/dL (0.6-1.3); POTASSIUM 4.4 mmol/L (3.5-5.1)
[2018-05-17] MEDS: LACTOBACILLUS RHAMNOSUS GG 1 EACH CAP.SPRINK PO SCH ×2 (08:54→17:53)
[2018-05-17] MEDS: ASPIRIN EC 81 MG TABLET.DR PO SCH (08:54)
[2018-05-17] MEDS: LEVOTHYROXINE SODIUM 137 MCG TABLET PO SCH (08:54)
[2018-05-17] MEDS: MULTIVITAMINS,THERAGRAN 1 UDTAB TABLET PO SCH (08:55)
[2018-05-17] MEDS: DIVALPROEX SODIUM 250 MG TABLET.DR PO SCH ×3 (08:55→21:09)
[2018-05-17] MEDS: QUETIAPINE FUMARATE 25 MG TABLET PO SCH (08:55)
[2018-05-17] MEDS: METOPROLOL TARTRATE 25 MG TABLET PO SCH ×2 (08:56→17:00)
[2018-05-17] MEDS: APIXABAN 5 MG TABLET PO SCH ×2 (08:57→17:49)
--- NOTE | 2018-05-17 15:36 | NUR ---
NILE contacted Toma ([phone]) from [facility] and informed her that the pt is going to be discharged tomorrow. She stated that the facility is ready for the pt.
--- NOTE | 2018-05-17 15:37 | NUR ---
NILE called the pt's brother, Santo ([phone]), and left a voicemail stating that the pt is going to be discharged back to [facility].
[2018-05-17 16:00] VITALS: BP 119/63
[2018-05-17 20:00] VITALS: BP 121/51
[2018-05-17] MEDS: QUETIAPINE FUMARATE 100 MG TABLET PO SCH (21:08)
[2018-05-17] MEDS: ESCITALOPRAM OXALATE (10 MG) 10 MG TABLET PO SCH (21:08)
[2018-05-17] MEDS: ATORVASTATIN 40 MG TABLET PO SCH (21:09)
[2018-05-18 08:00] VITALS: BP 150/65
--- NOTE | 2018-05-18 08:10 | NUR ---
RN-CO: DR MARIE ORDERED TO DISCONTINUE HOLD AND DISCHARGE PATIENT TO SNF.
[2018-05-18] MEDS ORDERED: APIXABAN 5 MG TABLET PO SCH (09:00)
[2018-05-18] MEDS: LACTOBACILLUS RHAMNOSUS GG 1 EACH CAP.SPRINK PO SCH (09:14)
[2018-05-18] MEDS: MULTIVITAMINS,THERAGRAN 1 UDTAB TABLET PO SCH (09:14)
[2018-05-18] MEDS: ASPIRIN EC 81 MG TABLET.DR PO SCH (09:14)
[2018-05-18] MEDS: QUETIAPINE FUMARATE 25 MG TABLET PO SCH (09:14)
[2018-05-18] MEDS: DIVALPROEX SODIUM 250 MG TABLET.DR PO SCH (09:14)
[2018-05-18] MEDS: LEVOTHYROXINE SODIUM 137 MCG TABLET PO SCH (09:14)
[2018-05-18 09:15] VITALS: BP 150/65
[2018-05-18] MEDS: METOPROLOL TARTRATE 25 MG TABLET PO SCH (09:15)
--- NOTE | 2018-05-18 12:00 | NUR ---
GPS/RN DISCHARGED PT TO [facility]. MEDICALLY CLEARED BY DR REECE.NO SI OR HI AT THE TIME OF DISCHARGE. PROPERTY RETURNED PT REFUSED TO SIGN EXIT CARE. MEDS RECON PROVIDED TO THE FACILITY. REPORT GIVEN OVER THE PHONE TO FRANCISCO JOHNSTON AND MEDS LIST FAXED WELL. PT AMBULATORY, VSS NO DISTRESS NOTED. LEFT VIA [facility]BUAL[facility].
--- NOTE | 2018-05-18 14:21 | NUR ---
Discharge Note: Pt was discharged to [facility] ([facility]) located at [address] [place] [address]; ([phone]). Pt was transported via [facility] (Trip #[id number]) at 11AM. Pts brother, Santo Reardon ([phone]), was notified. Upon discharge, the pt appeared to be in a dysphoric mood and presented with a distressed affect. Pt denied both suicidal and homicidal ideation as well as auditory and visual hallucinations. Pt will be under the care of her psychiatrist, Dr. Christelle Syed, located at [address] [place] [address]; and her blue crabber, Dr. Cholo Foss, located at [address], [address] [place] [address]; .
== END 2018-05-18 12:00 | DRG 885 ==
LOC: GPS 18:30
PROVIDERS: ADMIT Psychiatry & Neurology Psychiatry; ATTEND Psychiatry & Neurology Psychosomatic Medicine
DX: F29 Unspecified psychosis not due to a substance or known physiological condition (principal); N17.0 Acute kidney failure with tubular necrosis; I11.0 Hypertensive heart disease with heart failure; I82.403 Acute embolism and thrombosis of unspecified deep veins of lower extremity, bilateral; I50.32 Chronic diastolic (congestive) heart failure; E44.1 Mild protein-calorie malnutrition; F02.81 Dementia in other diseases classified elsewhere, unspecified severity, with behavioral disturbance; F32.3 Major depressive disorder, single episode, severe with psychotic features; E78.5 Hyperlipidemia, unspecified; E03.9 Hypothyroidism, unspecified; E86.0 Dehydration; G30.9 Alzheimer's disease, unspecified; K21.9 Gastro-esophageal reflux disease without esophagitis; J43.9 Emphysema, unspecified; I25.10 Atherosclerotic heart disease of native coronary artery without angina pectoris; E88.09 Other disorders of plasma-protein metabolism, not elsewhere classified; Z68.21 Body mass index [BMI] 21.0-21.9, adult; Z73.6 Limitation of activities due to disability
CPT/HCPCS: 36415; 80048-TC; 80053-TC; 80061-TC; 85025-TC; 87081-TC